=== PATIENT | female | born 1975 | race Caucasian/White ===

== ENCOUNTER 2016-07-21 12:01 | Emergency (ER) | payer OTHER ==
[2016-07-21 12:21] VITALS: O2SAT 99
[2016-07-21] MEDS ORDERED: TORAdol 30 mg Injection IM ONE (12:28)
[2016-07-21] MEDS ORDERED: TORAdol 30 mg Injection ONE (12:33)
--- NOTE | 2016-07-21 12:34 | ERPHSYRPT ---
- History of Present Illness Time Seen by Provider: 07/21/16 12:05 Source: patient Patient Subjective Stated Complaint: Pt states she has a tooth abscess on the right upper gum line. It started in the beginning of June - Dr. Oakes thought it was a sinus infection and started her on amoxicillin. She went to [facility] on July 10 and was diagnosed with the abscess and started on norco, cephalexin, and metronidazole. She states it is just getting worse and starting to hurt higher in the face/head. She states she has an appointment with the dentist on Thursday but that she can't pull the teeth because the infection is so bad. Pt also states she has been vomiting because the pain is so bad. Triage Nursing Assessment: Pt alert and oriented x3. skin pink warm and dry. afebrile. abscess noted to right upper gumline. right side of face appears to be slightly swollen Physician History: CC: toothache Hx: 40 y/o patient of Dr Oakes and Dr Stokes. She has toothache and abscess. Has seen dentist, and [facility] ER. Currently on keflex and flagyl. Was on amoxil. She takes percocet regularly. She has increased pain so came to ER. No fever or chills. No diff breathing. Not as she had hysterectomy. She has dental appt set up for Thursday this week. ENT Location: dental Allergies/Adverse Reactions: No Known Drug Allergies Allergy (Verified 07/21/16 12:13) Home Medications: Alprazolam 1 mg [Xanax 1 mg] 1 mg PO TID PRN 04/22/14 [History] Furosemide [Lasix] 40 mg PO BID 10/11/14 [History] Oxycodone HCl/Acetaminophen [Percocet 10-325 mg Tablet] 1 ea PO QID 06/11/15 [ History] Atorvastatin Calcium 40 mg PO DAILY 02/27/16 [History] Gabapentin 400 mg [Neurontin 400 MG] 400 mg PO TID 02/27/16 [History] Cephalexin Mh 500 mg [Keflex 500 mg] 500 mg PO QID 07/21/16 [History] Metronidazole 500 mg [Flagyl 500 MG] 500 mg PO DAILY 07/21/16 [History] Naproxen 375 mg [Naprosyn 375 mg] 375 mg PO BID 07/21/16 [History] Omeprazole 20 MG [Prilosec 20 mg] 20 mg PO DAILY 07/21/16 [History] Hx Tetanus, Diphtheria Vaccination/Date Given: No Hx Influenza Vaccination/Date Given: Yes Hx Pneumococcal Vaccination/Date Given: No - Review of Systems Constitutional: No Fever, No Chills Eyes: No Symptoms Ears, Nose, & Throat: Mouth Pain Respiratory: No Dyspnea Abdominal/Gastrointestinal: No Vomiting - Past Medical History Pertinent Past Medical History: Yes Neurological History: Other ENT History: No Pertinent History Cardiac History: Arrhythmia, High Cholesterol Respiratory History: No Pertinent History Endocrine Medical History: Other Musculoskeletal History: Arthritis, Fractures, Other GI Medical History: GERD History: Other Psycho-Social History: Anxiety, Depression Female Reproductive Disorders: Endometriosis Other Medical History: 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 she states it is deterioration of her muscles and bones.,goiter removed, carpal tunnel, - Past Surgical History Past Surgical History: Yes Neuro Surgical History: No Pertinent History Cardiac: No Pertinent History Respiratory: No Pertinent History Gastrointestinal: Cholecystectomy, Exploratory Laparoscopy Genitourinary: No Pertinent History Musculoskeletal: Joint Replacement Female Surgical History: Hysterectomy Other Surgical History: pt has had multiple surgeries.... 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 - Social History Smoking Status: Former smoker How long have you smoked: 10 years Exposure to second hand smoke: No Drug Use: marijuana Patient Lives Alone: No - Female History Hx Last Menstrual Period: hyster Hx Now: No - Nursing Vital Signs Nursing Vital Signs: Initial Vital Signs Temperature 98.0 F Temperature Source Oral Pulse Rate 60 Respiratory Rate 18 Blood Pressure [Right Arm] 142/74 Pain Intensity 9 - Physical Exam General Appearance: alert, obese, other (talkative) Eye Exam: bilateral eye: PERRL, EOMI Throat Exam: pharynx normal Neck Exam: normal inspection, non-tender, supple Cardiovascular/Respiratory Exam: normal breath sounds, regular rate/rhythm Neurologic Exam: alert, oriented x 3, cooperative Skin Exam: warm, dry, other (no facial cellulitis), No rash SpO2 Interpretation: normal SpO2: 99 Oxygen Delivery: Room Air Comments: Right upper tooth tender with some surrounding swelling. No trismus. No facial cellulitis. - Course Nursing assessment & vital signs reviewed: Yes - Progress Progress Note: 07/21/16 12:32 Advised she needs to see dentist again as soon as possible. She will try cleocin change. Toradol given here. Counseled pt/family regarding: diagnosis, need for follow-up - Departure Time of Disposition: 12:32 Departure Disposition: Home Clinical Impression: odontogenic abscess Condition: Stable Critical Care Time: No Referrals: VANE OAKES [Primary Care Provider] - Instructions: Dental Pain, Tooth Abscess Additional Instructions: See dentist as soon as possible. Stop keflex and flagyl. Rx clecoin. Rx florastor or get a probiotic. Continue your pain medication as already prescribed. Prescriptions: Clindamycin HCl 1 cap PO QID #28 capsule Saccharomyces Boulardii [Florastor] 250 mg PO BID #20 capsule
[2016-07-21 13:18] VITALS: BP 112/72; PULSE 56
== END 2016-07-21 13:17 | disposition home or self-care (01) ==
LOC: ED 12:01
DX: K04.7 Periapical abscess without sinus (principal)
CPT/HCPCS: 96372; 99284; J1885

== ENCOUNTER 2019-01-04 05:51 | Day surgery (SDC) | payer OTHER ==
[2019-01-04] MEDS ORDERED: Lactated Ringers 1,000 ML IV SCH (06:30)
[2019-01-04 06:44] VITALS: O2SAT 99
[2019-01-04] MEDS ORDERED: DIPRIVAN 200 MG/20 ML IV ONE (07:14)
[2019-01-04] MEDS ORDERED: Ketamine HCl 50 MG/ML ONE (07:14)
[2019-01-04] MEDS ORDERED: ROBINUL ONE (07:30)
[2019-01-04 10:32] VITALS: BP 133/72; PULSE 50
--- NOTE | 2019-01-04 11:04 | OP ---
SURGERY DATE/TIME: 01/04/201930 PREOPERATIVE DIAGNOSIS: Epigastric pain. POSTOPERATIVE DIAGNOSIS: Moderate gastritis. PROCEDURE: Esophagogastroduodenoscopy with biopsy. SURGEON: Dr. Oakes. ANESTHESIA: Medications given by the anesthesia department. BRIEF HISTORY: The patient is a 43 year old white female presenting now with persistent epigastric pain despite proton pump inhibitor medication. The patient is felt the need to have endoscopic evaluation. She was described the risks of the procedure including the risk of perforation, phlebitis, untoward reaction to medication, bleeding and missed lesions. The patient verbalized her understanding and desired to have the procedure performed. DESCRIPTION OF PROCEDURE: The patient was given the medications by the anesthesia department. She had continuous pulse oximetry, ECG monitoring, intermittent blood pressure monitoring and tidal CO2 monitoring during the examination. She was placed in the left lateral decubitus position. A bite block was placed and the flexible Olympus gastroscope was used to intubate the oropharynx. A view of the larynx was obtained and was normal. The scope was easily introduced in the esophagus which was normal throughout its length. The stomach was entered where normal gastric rugal folds were seen. The scope was passed along the greater curvature of the stomach to the antrum where there appeared to be moderate erythema but no erosions or ulcerations were encountered. The scope was advanced to the pylorus which was then intubated. The duodenum inspected and found to be normal. The scope is withdrawn towards the stomach. Again, a retroflex view was obtained of the lesser curvature, fundus and cardia regions of the stomach and these appeared to be essentially normal. The scope was then redirected towards the gastric antrum and biopsies were obtained to rule out the presence of Helicobacter pylori-type organisms. The scope was then removed from the patient who tolerated the procedure well and was sent back to outpatient recovery in good condition.
== END 2019-01-04 09:10 | disposition home or self-care (01) ==
LOC: SDC 05:51
PROVIDERS: ATTEND Family Medicine
DX: K29.70 Gastritis, unspecified, without bleeding (principal)
CPT/HCPCS: J2704

== ENCOUNTER 2022-01-01 10:03 | Emergency (ER) | payer OTHER ==
[2022-01-01 10:18] VITALS: BP 156/112; PULSE 60; O2SAT 98
[2022-01-01] MEDS ORDERED: TORAdol 30 mg Injection ONE (10:38)
[2022-01-01] MEDS ORDERED: Norflex 60 MG/2 ML ONE (10:38)
[2022-01-01] MEDS: Norflex 60 MG/2 ML IM ONE (10:39)
[2022-01-01] MEDS: TORAdol 30 mg Injection IM ONE (10:39)
--- NOTE | 2022-01-01 10:53 | ERPHSYRPT ---
- History of Present Illness Source: patient Exam Limitations: no limitations Patient Subjective Stated Complaint: PT states "I have CMT disease and I have flair ups and this is the worst it has ever been and I just want the pain to go away." Triage Nursing Assessment: PT presented alert and oriented X3, skin wpd. PT unable to sit still, moaning and crying. pt visibly upset Physician History: 46 yo wf w [facility] Dz presents w cc of myalgias/arthralias x 2 days. Pt has chronic pain and intermittent flare up. She takes Gabapentin/Xanax/Tramadol on a regular basis. Pain "greater than 10" on scale. She denies N/V/D/cough/coryza/fever/dysuria/hematuria/abdominal pain. Everything makes the pain worse. Timing/Duration: other (2-3 days) Severity: moderate Modifying Factors: Improves With: other (Everything makes it worse) Associated Symptoms: No nausea, No vomiting, No abdominal pain, No shortness of breath, No heartburn, No diaphoresis, No cough, No chills, No chest pain, No fever, No headaches, No loss of appetite, No malaise, No rash, No syncope, No seizure Allergies/Adverse Reactions: No Known Drug Allergies Allergy (Verified 12/31/18 12:30) Home Medications: ALPRAZolam 1 MG [Xanax 1 mg] 1 mg PO TID PRN PRN 12/31/18 [History] Ergocalciferol (Vitamin D2) [Vitamin D] 50,000 unit PO WEEKLY 12/31/18 [History] Gabapentin [Gralise] 1,800 mg PO DAILY 12/31/18 [History] Omeprazole Magnesium [Prilosec Otc] 40 mg PO BID 12/31/18 [History] Ondansetron ODT 4 MG [Zofran Odt 4 mg] 4 mg PO Q6H PRN PRN 12/31/18 [History] Potassium Chloride 20 meq PO DAILY 12/31/18 [History] Celecoxib 200 mg PO BID 01/01/22 [History] Doxycycline Monohydrate 100 mg PO BID 01/01/22 [History] Tramadol HCl 50 mg [Ultram 50 mg] 50 mg PO QID 01/01/22 [History] Hx Tetanus, Diphtheria Vaccination/Date Given: No Hx Influenza Vaccination/Date Given: Yes Hx Pneumococcal Vaccination/Date Given: No Immunizations Up to Date: Yes Travel Risk - International Travel Have you traveled outside of the country in past 3 weeks: No - Coronavirus Screening Are you exhibiting any of the following symptoms?: No Close contact with a COVID-19 positive Pt in past 14-21 Days: No - Vaccine Status Have you recieved a Covid-19 vaccination: No - Review of Systems Constitutional: No Symptoms Eyes: No Symptoms Ears, Nose, & Throat: No Symptoms Respiratory: No Symptoms Cardiac: No Symptoms Abdominal/Gastrointestinal: No Symptoms Genitourinary Symptoms: No Symptoms Skin: No Symptoms Neurological: No Symptoms Psychological: No Symptoms Endocrine: No Symptoms Hematologic/Lymphatic: No Symptoms Immunological/Allergic: No Symptoms - Past Medical History Pertinent Past Medical History: Yes Neurological History: Peripheral Neuropathy ENT History: No Pertinent History Cardiac History: No Pertinent History Respiratory History: No Pertinent History Endocrine Medical History: Other Musculoskeletal History: Arthritis, Fractures, Osteoarthritis GI Medical History: GERD History: Other Psycho-Social History: Anxiety, Depression Female Reproductive Disorders: Endometriosis Other Medical History: Hx of goiter. 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 - Social History Smoking Status: Never smoker How long have you smoked: 30 years Exposure to second hand smoke: Yes Drug Use: marijuana Patient Lives Alone: No - Female History Hx Last Menstrual Period: hysterectomy Hx Now: No - Nursing Vital Signs Nursing Vital Signs: Initial Vital Signs Temperature 97.2 F 01/01/22 10:09 Pulse Rate 60 01/01/22 10:09 Respiratory Rate 20 01/01/22 10:09 Blood Pressure 156/112 01/01/22 10:09 O2 Sat by Pulse Oximetry 98 01/01/22 10:09 Pain Scale Pain Intensity [Posterior Back 8 ] Pain Intensity 8 Hypertension - Physical Exam General Appearance: no apparent distress, anxiety Eye Exam: PERRL/EOMI, eyes nml inspection Ears, Nose, Throat Exam: normal ENT inspection, TMs normal, pharynx normal, moist mucous membranes Neck Exam: normal inspection, non-tender, supple, full range of motion, No meningismus, No mass, No Brudzinski, No Kernig's Respiratory Exam: normal breath sounds, lungs clear, airway intact Cardiovascular Exam: regular rate/rhythm, normal heart sounds, normal peripheral pulses, capillary refill <2 sec, No murmur Gastrointestinal/Abdomen Exam: soft, normal bowel sounds, No tenderness Back Exam: normal inspection, normal range of motion, No CVA tenderness, No vertebral tenderness Extremity Exam: normal inspection, normal range of motion, pelvis stable Neurologic Exam: alert, oriented x 3, cooperative, shake maker II-XII nml as tested, normal mood/affect, nml cerebellar function, nml station & gait, sensation nml, No motor deficits, No sensory deficit Skin Exam: normal color, warm, dry Lymphatic Exam: adenopathy SpO2 Interpretation: normal SpO2: 98 O2 Delivery: Room Air - Course Nursing assessment & vital signs reviewed: Yes Ordered Tests: Medication Summary Discontinued Medications Generic Name Dose Route Start Last Admin Trade Name Freq PRN Reason Stop Dose Admin Droperidol 1.25 mg 01/01/22 10:35 01/01/22 10:39 Droperidol 5 Mg/2 Ml Vial IM 01/01/22 10:36 1.25 mg STAT ONE Administration Droperidol Confirm 01/01/22 10:38 Droperidol 5 Mg/2 Ml Vial Administered 01/01/22 10:39 Dose 5 mg .ROUTE .STK-MED ONE Ketorolac Tromethamine 30 mg 01/01/22 10:34 01/01/22 10:39 Ketorolac Tromethamine 30 Mg/Ml Inj IM 01/01/22 10:35 30 mg STAT ONE Administration Ketorolac Tromethamine Confirm 01/01/22 10:38 Ketorolac Tromethamine 30 Mg/Ml Inj Administered 01/01/22 10:39 Dose 30 mg .ROUTE .STK-MED ONE Orphenadrine Citrate 60 mg 01/01/22 10:34 01/01/22 10:39 Orphenadrine Citrate 60 Mg/2 Ml Vial IM 01/01/22 10:35 60 mg STAT ONE Administration Orphenadrine Citrate Confirm 01/01/22 10:38 Orphenadrine Citrate 60 Mg/2 Ml Vial Administered 01/01/22 10:39 Dose 60 mg .ROUTE .STK-MED ONE - Progress Progress Note: 01/01/22 10:57 30mg IM Toradol 60mg IM Norflex 01/01/22 10:59 1.25mg IM Droperidol 01/01/22 11:23 Pt's symptoms much improved Counseled pt/family regarding: diagnosis, need for follow-up - Departure Departure Disposition: Home Clinical Impression: Chronic pain Condition: Stable Critical Care Time: No Referrals: VANE OAKES [Primary Care Provider] - Follow up/PCP as directed Instructions: Chronic Pain (DC) Additional Instructions: Follow up with Dr. Oakes Return to ER for increasing pain or temperature greater than 100.5
== END 2022-01-01 11:36 | disposition home or self-care (01) ==
LOC: ED 10:03
DX: G89.29 Other chronic pain (principal); G60.0 Hereditary motor and sensory neuropathy; Z79.899 Other long term (current) drug therapy
CPT/HCPCS: 96372; 99283; J1885; J2360

== ENCOUNTER 2022-06-18 14:07 | Day surgery (SDC) | payer OTHER ==
[2012-03-16 17:16] VITALS: BP 114/68
[2022-06-18] MEDS ORDERED: Decadron 4 MG INJ IV ONE (14:08)
[2022-06-18] MEDS ORDERED: LIDOCAINE HCL 1% 50 MG/5 ML VL PF IJ ONE (14:08)
[2022-06-18] MEDS ORDERED: DIPRIVAN 200 MG/20 ML IV ONE (16:22)
[2022-06-18] MEDS ORDERED: Lactated Ringers 1,000 ML IV ONE (16:44)
--- NOTE | 2022-06-18 18:55 | XRAY ---
Indication: Bilateral piriformis injection. Intraoperative fluoroscopy provided for 19 seconds. 2 digital spot image submitted for interpretation demonstrates posterior needle tip projecting over the expected left and right piriformis muscles. Small amount of contrast injected for both needle tip placement. Correlate with intraoperative findings/report.
--- NOTE | 2022-06-19 09:56 | XRAY ---
19 seconds of fluoroscopy was used in surgery for bilateral piriformis injections.
== END 2022-06-18 16:50 | disposition home or self-care (01) ==
LOC: SDC-PAIN 14:07
PROVIDERS: ATTEND Psychiatry & Neurology Pain Medicine
DX: M79.18 Myalgia, other site (principal); Z79.899 Other long term (current) drug therapy
CPT/HCPCS: 20552; 72170; 77002; J1100; J2001; J2704; Q9966

== ENCOUNTER 2022-09-03 14:23 | Day surgery (SDC) | payer OTHER ==
[2012-03-16 17:16] VITALS: BP 114/68
[2022-09-03] MEDS ORDERED: LIDOCAINE HCL 1% 50 MG/5 ML VL PF IJ ONE (14:24)
[2022-09-03] MEDS ORDERED: Decadron 4 MG INJ IV ONE (14:24)
[2022-09-03] MEDS ORDERED: DIPRIVAN 200 MG/20 ML IV ONE ×2 (17:00→17:06)
[2022-09-03] MEDS ORDERED: Lactated Ringers 1,000 ML IV ONE (17:29)
--- NOTE | 2022-09-03 20:57 | XRAY ---
Indication: Right piriformis injection. Intraoperative fluoroscopy provided for 11 seconds. Single digital spot images submitted for interpretation demonstrates posterior needle tip projecting over the expected right piriformis muscle. Small amount of contrast injected for needle tip placement. Correlate with intraoperative findings/report.
--- NOTE | 2022-09-04 09:04 | XRAY ---
11 seconds of fluoroscopy was used in surgery for a right piriformis injection.
== END 2022-09-03 17:25 | disposition home or self-care (01) ==
LOC: SDC-PAIN 14:23
PROVIDERS: ATTEND Psychiatry & Neurology Pain Medicine
DX: M79.18 Myalgia, other site (principal); Z79.899 Other long term (current) drug therapy
CPT/HCPCS: 20552; 72170; 77002; J1100; J2001; J2704; Q9966

== ENCOUNTER 2023-02-10 11:23 | Emergency (ER) | payer OTHER ==
[2023-02-10 11:41] VITALS: RESP 18; TEMP 97.2
[2023-02-10] MEDS ORDERED: TORAdol 30 mg Injection IM ONE (11:48)
[2023-02-10] MEDS ORDERED: DECADRON 10MG INJ. IM ONE (11:48)
[2023-02-10] MEDS ORDERED: TORAdol 30 mg Injection ONE (11:59)
[2023-02-10] MEDS ORDERED: DECADRON 10MG INJ. ONE (11:59)
[2023-02-10 13:26] VITALS: O2SAT 98
[2023-02-10 14:08] LABS: HCG URINE TEST NEGATIVE (NEGATIVE)
[2023-02-10 14:10] LABS: Appearance Clear (Clear); Bacteria None Seen /HPF (None Seen); Bilirubin Negative (Negative); Blood Negative (Negative); Epithelial Cells None Seen /HPF (None Seen); Glucose, Urine Negative (Negative); Hyaline Casts NONE SEEN /LPF (0-2); Ketones Negative (Negative); Leukocyte Esterase Negative (Negative); Nitrite Negative (Negative); Ph 6.5 (4.6-8.0); Protein,Urine Dip Negative (Negative); RBC 0-2 /HPF (0-5); WBC 0-2 /HPF (0-5)
[2023-02-10 14:17] LABS: ADD URINE CULTURE? NO (NO)
--- NOTE | 2023-02-10 14:18 | XRAY ---
CLINICAL HISTORY:pain COMPARISON:None TECHNIQUE:CT scan of the lumbar spine was performed without contrast. FINDINGS: No fracture noted. Mild scoliotic deformity with convexity towards the right side. Normal mid-sagittal diameter of the examined lumbar vertebrae. Multilevel osteophytes are noted with relatively reduced intervertebral disc spaces between T11-T12, T12-L1, and L1-L2. Subchondral cystic changes and sclerosis were noted zygo apophyseal joints at multiple levels. There is an avulsed bony fragment noted at the spinous process of L5, No abnormal para-vertebral soft tissue shadow. [id number] analysis: T12-L1: Disc bulge is noted with mild central canal and neural foraminal stenosis. L1-L2: A mild diffuse disc bulge is noted with mild neural foraminal stenosis bilaterally. L2-L3: No central canal or neuroforaminal stenosis. L3-L4: Mild diffuse disc bulge causing mild central canal and neural foraminal stenosis. L4-L5: Left foraminal disc bulge causing left neural foraminal stenosis. L5-S1: Extensive degenerative changes in bilateral facet joints with subarticular cyst formation and right pars defect with subchondral stenosis. Diffuse disc bulge is also noted causing bilateral neural foraminal stenosis. IMPRESSION: 1. Mild scoliotic deformity with convexity towards the right side and extensive degenerative changes in the lumbar spine with multilevel osteophyte formation and facet joint arthropathy. 2. Right-sided pars defect with sclerotic margins at L5-S1 and extensive arthropathic changes around. 3. Multilevel disc bulges requiring further evaluation with an MRI lumbar spine for better evaluation. Electronically Signed by: Gabi Brody MD. (02/10/2023 14:14:16 EST)
--- NOTE | 2023-02-10 14:48 | ERPHSYRPT ---
- History of Present Illness Time Seen by Provider: 02/10/23 12:00 Source: patient Exam Limitations: no limitations Patient Subjective Stated Complaint: PT HERE FOR PAIN TO LOWER BACK, SHE HAS CHRONIC BACK PAIN AND WAS SENT HERE FOR PAIN OFFICE. NO NEW INJURY Triage Nursing Assessment: PT ALERT, MOANING OUT, PACING BACK AND FORTH HOLDING BACK. NO EDEMA NOTED, SKIN W/D/P. MOVES ALL EXT WELL Physician History: Patient is a 47-year-old female presents to our ED as referral from pain clinic for evaluation and treatment of acute on chronic back pain. Pain clinic states that they intended to obtain an MRI however due to insurance reasons MRI has not been approved. Pain described as an ache that radiates into her right posterior leg. Pain worse with straight leg raise. Pain improves to hook lying. No change in bowel bladder function. No recent back procedure. No fever. No lower extremity numbness tingling or weakness. No saddle anesthesia. Patient states the pain is similar to her chronic pain. Significant other at bedside. They voiced no other complaints or concerns at this time. Portions of this note were created with voice recognition technology. There may be grammatical, spelling, punctuation or sound alike errors Timing/Duration: day(s) Method of Injury: unknown Quality: burning Back Pain Location: lumbar spine Back Pain Radiation: buttocks Severity of Pain-Max: severe Severity of Pain-Current: moderate Modifying Factors: Improves With: movement Associated Symptoms: denies symptoms Previous symptoms: same symptoms as today Allergies/Adverse Reactions: oxycodone Allergy (Verified 02/10/23 11:43) Home Medications: ALPRAZolam 1 MG [Xanax 1 mg] 1 mg PO TID PRN PRN 12/31/18 [History] Ergocalciferol (Vitamin D2) [Vitamin D] 50,000 unit PO WEEKLY 12/31/18 [History] Gabapentin [Gralise] 1,800 mg PO DAILY 12/31/18 [History] Omeprazole Magnesium [Prilosec Otc] 40 mg PO BID 12/31/18 [History] Potassium Chloride 20 meq PO DAILY 12/31/18 [History] Celecoxib 200 mg PO BID 01/01/22 [History] Tramadol HCl 50 mg [Ultram 50 mg] 50 mg PO QID 01/01/22 [History] Hx Tetanus, Diphtheria Vaccination/Date Given: No Hx Influenza Vaccination/Date Given: Yes Hx Pneumococcal Vaccination/Date Given: No Immunizations Up to Date: Yes Travel Risk - International Travel Have you traveled outside of the country in past 3 weeks: No - Coronavirus Screening Are you exhibiting any of the following symptoms?: No Close contact with a COVID-19 positive Pt in past 14-21 Days: No - Vaccine Status Have you recieved a Covid-19 vaccination: No - Review of Systems Constitutional: No Symptoms, No Fever, No Chills Eyes: No Symptoms Ears, Nose, & Throat: No Symptoms Respiratory: No Symptoms, No Cough, No Dyspnea Cardiac: No Symptoms, No Chest Pain, No Edema, No Syncope Abdominal/Gastrointestinal: No Symptoms, No Abdominal Pain, No Nausea, No Vomiting, No Diarrhea Genitourinary Symptoms: No Symptoms, No Dysuria Musculoskeletal: No Symptoms, No Back Pain, No Neck Pain Skin: No Symptoms, No Rash Neurological: No Symptoms, No Dizziness, No Focal Weakness, No Sensory Changes Psychological: No Symptoms Endocrine: No Symptoms Hematologic/Lymphatic: No Symptoms Immunological/Allergic: No Symptoms All Other Systems: Reviewed and Negative - Past Medical History Pertinent Past Medical History: Yes Neurological History: Other ENT History: No Pertinent History Cardiac History: No Pertinent History Respiratory History: Bronchitis Endocrine Medical History: Hypothyroidism Musculoskeletal History: Degenerative Disk Disease, Osteoarthritis, Other GI Medical History: GERD History: Other Psycho-Social History: Anxiety, Depression Female Reproductive Disorders: Endometriosis Other Medical History: REPORTS HX GOITER, HYSTERECTOMY 2010, GERD. CHRONIC PAIN SEE PAIN. R RTC REPAIR - Past Surgical History Past Surgical History: Yes Neuro Surgical History: No Pertinent History Cardiac: No Pertinent History Respiratory: No Pertinent History Gastrointestinal: Cholecystectomy, Exploratory Laparoscopy Genitourinary: No Pertinent History Musculoskeletal: Joint Replacement Female Surgical History: Hysterectomy Other Surgical History: pt has had multiple surgeries.... 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 - Social History Smoking Status: Never smoker How long have you smoked: 30 years Exposure to second hand smoke: Yes Drug Use: marijuana Patient Lives Alone: No - Female History Hx Last Menstrual Period: HYSTER Hx Now: No - Nursing Vital Signs Nursing Vital Signs: Initial Vital Signs Temperature 97.2 F 02/10/23 11:40 Pulse Rate 94 H 02/10/23 11:40 Respiratory Rate 18 02/10/23 11:40 Blood Pressure 139/101 02/10/23 11:40 O2 Sat by Pulse Oximetry 99 02/10/23 11:40 Pain Scale Pain Intensity [Back] 10 Pain Intensity 0 - Physical Exam General Appearance: no apparent distress, alert Eye Exam: PERRL/EOMI, eyes nml inspection Neck Exam: normal inspection, non-tender, supple, full range of motion, No meningismus, No midline tenderness Respiratory Exam: normal breath sounds, lungs clear, No respiratory distress Cardiovascular Exam: regular rate/rhythm, normal heart sounds Gastrointestinal Exam: soft, No tenderness, No mass Back Exam: other (Some tenderness to lumbar spine paraspinal musculature. Mild to moderate midline tenderness as well.) Extremity Exam: normal inspection, normal range of motion, No calf tenderness, No pedal edema Peripheral Pulses: dorsalis-pedis (R): 2+, dorsalis-pedis (L): 2+ Neurologic Exam: alert, oriented x 3, cooperative, night stocker II-XII nml as tested, normal mood/affect, nml station & gait, sensation nml, No motor deficits Skin Exam: normal color, warm, dry, No rash Lymphatic Exam: No adenopathy SpO2 Interpretation: normal SpO2: 98 O2 Delivery: Room Air - Course Nursing assessment & vital signs reviewed: Yes - CT Exams Lumbar Spine CT Interpretation: Tele-radiologist Report (Disc bulge, sciatica, neuroforaminal narrowing) Ordered Tests: Active Orders 24 hr Category Date Time Status LUMBAR SPINE W/O [CT] Stat Exams 02/10/23 11:43 Completed HCG QUALITATIVE, URINE Stat Lab 02/10/23 14:06 Completed UA W/RFX UR CULTURE Stat Lab 02/10/23 14:03 Completed Medication Summary Discontinued Medications Generic Name Dose Route Start Last Admin Trade Name Freq PRN Reason Stop Dose Admin Dexamethasone Sodium Phosphate 10 mg 02/10/23 11:48 02/10/23 12:04 Dexamethasone Sod Phosphate 10 Mg/Ml IM 02/10/23 11:49 10 mg STAT ONE Administration Dexamethasone Sodium Phosphate Confirm 02/10/23 11:59 Dexamethasone Sod Phosphate 10 Mg/Ml Administered 02/10/23 12:00 Dose 10 mg .ROUTE .STK-MED ONE Ketorolac Tromethamine 60 mg 02/10/23 11:48 02/10/23 12:03 Ketorolac Tromethamine 30 Mg/Ml Inj IM 02/10/23 11:49 60 mg STAT ONE Administration Ketorolac Tromethamine Confirm 02/10/23 11:59 Ketorolac Tromethamine 30 Mg/Ml Inj Administered 02/10/23 12:00 Dose 60 mg .ROUTE .STK-MED ONE Lab/Rad Data: Laboratory Results 02/10/23 02/10/23 Range/Units 14:06 14:03 Urine Color Yellow (Yellow) Urine Appearance Clear (Clear) Urine pH 6.5 (4.6-8.0) Ur Specific [place] 1.020 (1.005-1.030) Urine Protein Negative (Negative) Urine Glucose (UA) Negative (Negative) mg/dL Urine Ketones Negative (Negative) Urine Blood Negative (Negative) Urine Nitrite Negative (Negative) Urine Bilirubin Negative (Negative) Urine Urobilinogen 1.0 A (0.2) mg/dL Ur Leukocyte Esterase Negative (Negative) U Hyaline Cast (Auto) NONE SEEN (0-2) /LPF Urine Microscopic RBC 0-2 (0-5) /HPF Urine Microscopic WBC 0-2 (0-5) /HPF Ur Epithelial Cells None Seen (None Seen) /HPF Urine Bacteria None Seen (None Seen) /HPF Urine Culture Reflexed NO (NO) Urine HCG, Qual NEGATIVE (NEGATIVE) - Progress Progress: improved Progress Note: Patient is a 47-year-old female presents to our ED for evaluation and treatment of acute on chronic low back pain/sciatica. Physical exam reveals some tenderness along the bilateral lumbar paraspinal musculature and midline lumbar area particularly at L5-S1. Overlying soft tissue intact. Patient received Decadron and Toradol for pain control. Patient reassessed. Pain significantly improved. CT lumbar spine reveals disc bulge neuroforaminal narrowing. Patient is currently scheduled for an outpatient MRI. Patient will also be following up with neurosurgery/orthopedic spine surgery for consultation. Urinalysis negative for UTI. Patient states he is ready for discharge. No indication for further workup at this time. Portions of this note were created with voice recognition technology. There may be grammatical, spelling, punctuation or sound alike errors Complexity problem addressed is moderate acute complicated No critical care time Complexity of data reviewed and analyzed is moderate. Test ordered test reviewed. Results analyzed and correlated clinically with history and physical examination. Risk complication and or risk of morbidity/mortality of patient management is low. Vital stable. Time spent in discharge patient approximately 10 minutes. Plan of care established via shared decision making. No social determinants of health present impede follow-up. Portions of this note were created with voice recognition technology. There may be grammatical, spelling, punctuation or sound alike errors 02/10/23 15:04 Counseled pt/family regarding: diagnosis, need for follow-up, rad results - Departure Departure Disposition: Home Clinical Impression: Sciatica, Bulging discs, Neuroforaminal stenosis of lumbar spine, Back pain Condition: Stable Critical Care Time: No Referrals: VANE MOTA [Primary Care Provider] - Follow up/PCP as directed Additional Instructions: Discharge/Care Plan JAKUB VIDAL was seen on 02/10/23 in the Emergency Room. The patient was counseled regarding Diagnosis,Lab results, Imaging studies, need for follow up and when to return to the Emergency Room. Prescriptions given: Discharge Note I have spoken with the patient and/or caregivers. I have explained the patient's condition, diagnosis and treatment plan based on the information available to me at this time. I have answered the patient's and/or caregiver's questions and addressed any concerns. The patient and/or caregivers have as good understanding of the patient's diagnosis, condition and treatment plan as can be expected at this point. The vital signs have been stable. The patient's condition is stable and appropriate for discharge from the emergency department. The patient will pursue further outpatient evaluation with the primary care physician or other designated or consulting physician as outlined in the discharge instructions. The patient and/or caregivers are agreeable to this plan of care and follow-up instructions have been explained in detail. The patient and/or caregivers have received these instruction. The patient/and or caregivers are aware that any significant change in condition or worsening of symptoms should prompt an immediate return to this or the closest emergency department or call 911.
[2023-02-10 15:04] VITALS: BP 128/75; PULSE 88
== END 2023-02-10 15:02 | disposition home or self-care (01) ==
LOC: ED 11:23
DX: M54.31 Sciatica, right side (principal); M51.36 Other intervertebral disc degeneration, lumbar region; M48.061 Spinal stenosis, lumbar region without neurogenic claudication; M54.50 Low back pain, unspecified; Z79.891 Long term (current) use of opiate analgesic; Z79.899 Other long term (current) drug therapy; Z28.310 Unvaccinated for COVID-19
CPT/HCPCS: 72131; 81001; 81025; 96372; 99283; J1100; J1885

== ENCOUNTER 2023-03-05 07:19 | Emergency (ER) | payer OTHER ==
[2023-03-05 07:33] VITALS: TEMP 97.3
--- NOTE | 2023-03-05 07:41 | ERPHSYRPT ---
- History of Present Illness Time Seen by Provider: 03/05/23 07:35 Source: patient Exam Limitations: clinical condition Patient Subjective Stated Complaint: back pain Triage Nursing Assessment: patient reports known cyst on lumbar spine and in severe pain. patient is tearful. reports dr jonas diagnosed cyst. pt reports dr jonas is no longer treating her pain due to referring her to a specialist in [place]. Physician History: This is a 47-year-old white female patient who presents with low back pain that is severe per her report. Patient has been having back pain issues for the last 2 to 3 months. Per her report, they found a lumbar spine cyst and she was referred to a back specialist and [facility]. Patient was being followed by pain specialist Dr. Jonas. He is no longer in control of her pain management. Patient denies any acute fall or trauma to the painful area. Patient has not had symptoms of urinary or bowel incontinence. She does not have numbness down to her feet. Review of the patient's lumbar MRI dated 02/11/2023 showed multiple level lumbar spine disc bulges with neuroforaminal narrowing. There is evidence of L3-4, L4-5, L5-S1 parafacetal cysts. Patient was driven into the hospital by her . Timing/Duration: yesterday, worse Method of Injury: other (No acute fall or trauma) Quality: sharp, stabbing Back Pain Location: lumbar spine Severity of Pain-Max: moderate Severity of Pain-Current: moderate Associated Symptoms: lower back pain, muscle spasms, No urinary incontinence, No loss of bowel control, No problems urinating, No numbness in legs/feet, No tingling in legs/feet Previous symptoms: same symptoms as today, no recent treatment Allergies/Adverse Reactions: oxycodone Allergy (Verified 03/05/23 07:35) itching Home Medications: ALPRAZolam 1 MG [Xanax 1 mg] 1 mg PO TID PRN PRN 12/31/18 [History] Ergocalciferol (Vitamin D2) [Vitamin D] 50,000 unit PO WEEKLY 12/31/18 [History] Gabapentin [Gralise] 1,800 mg PO DAILY 12/31/18 [History] Omeprazole Magnesium [Prilosec Otc] 40 mg PO BID 12/31/18 [History] Potassium Chloride 20 meq PO DAILY 12/31/18 [History] Celecoxib 200 mg PO BID 01/01/22 [History] Tramadol HCl 50 mg [Ultram 50 mg] 50 mg PO QID 01/01/22 [History] Hx Tetanus, Diphtheria Vaccination/Date Given: No Hx Influenza Vaccination/Date Given: Yes Hx Pneumococcal Vaccination/Date Given: No Travel Risk - International Travel Have you traveled outside of the country in past 3 weeks: No - Coronavirus Screening Are you exhibiting any of the following symptoms?: No Close contact with a COVID-19 positive Pt in past 14-21 Days: No - Vaccine Status Have you recieved a Covid-19 vaccination: No - Review of Systems Constitutional: No Symptoms Eyes: No Symptoms Ears, Nose, & Throat: No Symptoms Respiratory: No Symptoms Cardiac: No Symptoms Abdominal/Gastrointestinal: No Symptoms Genitourinary Symptoms: No Symptoms Musculoskeletal: Back Pain Skin: No Symptoms Neurological: No Symptoms Psychological: No Symptoms Endocrine: No Symptoms Hematologic/Lymphatic: No Symptoms Immunological/Allergic: No Symptoms All Other Systems: Reviewed and Negative - Past Medical History Pertinent Past Medical History: Yes Neurological History: Other ENT History: No Pertinent History Cardiac History: No Pertinent History Respiratory History: Bronchitis Endocrine Medical History: Hypothyroidism Musculoskeletal History: Degenerative Disk Disease, Osteoarthritis, Other GI Medical History: GERD History: Other Psycho-Social History: Anxiety, Depression Female Reproductive Disorders: Endometriosis Other Medical History: REPORTS HX GOITER, HYSTERECTOMY 2009, GERD. CHRONIC PAIN SEE PAIN. R RTC REPAIR - Past Surgical History Past Surgical History: Yes Neuro Surgical History: No Pertinent History Cardiac: No Pertinent History Respiratory: No Pertinent History Gastrointestinal: Cholecystectomy, Exploratory Laparoscopy Genitourinary: No Pertinent History Musculoskeletal: Joint Replacement Female Surgical History: Hysterectomy Other Surgical History: pt has had multiple surgeries.... 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 - Social History Smoking Status: Never smoker How long have you smoked: 30 years Exposure to second hand smoke: No Drug Use: marijuana Patient Lives Alone: No - Female History Hx Now: No - Nursing Vital Signs Nursing Vital Signs: Initial Vital Signs Temperature 97.3 F 03/05/23 07:31 Pulse Rate 75 03/05/23 07:31 Respiratory Rate 20 03/05/23 07:31 Blood Pressure 124/91 03/05/23 07:31 O2 Sat by Pulse Oximetry 98 03/05/23 07:31 Pain Scale Pain Intensity 10 - Physical Exam General Appearance: mild distress, alert, anxiety Eye Exam: PERRL/EOMI, eyes nml inspection Ears, Nose, Throat Exam: moist mucous membranes, other (Upper edentulous) Neck Exam: normal inspection, non-tender, supple, full range of motion Respiratory Exam: normal breath sounds, lungs clear, airway intact, No chest tenderness, No respiratory distress Cardiovascular Exam: regular rate/rhythm, normal heart sounds, normal peripheral pulses Gastrointestinal Exam: soft, normal bowel sounds, No tenderness Pelvic Exam: not done Rectal Exam: not done Back Exam: normal inspection, normal range of motion, vertebral tenderness (Lumbar level), decreased range of motion, muscle spasm, No CVA tenderness Extremity Exam: normal inspection, normal range of motion, pelvis stable Neurologic Exam: alert, oriented x 3, cooperative, normal mood/affect, sensation nml, abnormal gait (Secondary to back pain) Skin Exam: normal color, warm, dry Lymphatic Exam: No adenopathy SpO2 Interpretation: normal SpO2: 98 O2 Delivery: Room Air - Course Nursing assessment & vital signs reviewed: Yes Ordered Tests: Active Orders 24 hr Category Date Time Status Clean Catch Urine Specimen STAT Care 03/05/23 07:46 Active LUMBAR SPINE W/O [CT] Stat Exams 03/05/23 07:46 Completed CBC W DIFF Stat Lab 03/05/23 08:10 Completed CMP Stat Lab 03/05/23 08:10 Completed UA W/RFX UR CULTURE Stat Lab 03/05/23 09:57 Completed Urine Triage Profile Stat Lab 03/05/23 09:57 Completed Medication Summary Generic Name Dose Route Start Last Admin Trade Name Freq PRN Reason Stop Dose Admin Sodium Chloride 1,000 mls @ 100 mls/hr 03/05/23 08:00 03/05/23 07:55 Sodium Chloride 0.9% 1000 Ml IV 04/04/23 07:59 100 mls/hr .Q10H KAUSHIK Administration Discontinued Medications Generic Name Dose Route Start Last Admin Trade Name Freq PRN Reason Stop Dose Admin Methylprednisolone Sodium 0 mg 03/05/23 07:47 03/05/23 08:05 Succinate 125 mg/ Sterile IV 03/05/23 07:48 125 mg Water 2 ml STAT ONE Administration Hydromorphone HCl 1 mg 03/05/23 07:46 03/05/23 07:58 Hydromorphone 1 Mg/1ml Inj IV 03/05/23 07:47 1 mg STAT ONE Administration Hydromorphone HCl Confirm 03/05/23 07:51 Hydromorphone 1 Mg/1ml Inj Administered 03/05/23 07:52 Dose 1 mg .ROUTE .STK-MED ONE Methylprednisolone Sodium Succinate Confirm 03/05/23 07:51 Methylprednis Sod Succ 125 Mg/2 Ml Vial Administered 03/05/23 07:52 Dose 125 mg .ROUTE .STK-MED ONE Ondansetron HCl 4 mg 03/05/23 07:46 03/05/23 07:57 Ondansetron Hcl 4 Mg/2 Ml Vial IV 03/05/23 07:47 4 mg STAT ONE Administration Ondansetron HCl Confirm 03/05/23 07:50 Ondansetron Hcl 4 Mg/2 Ml Vial Administered 03/05/23 07:51 Dose 4 mg .ROUTE .STK-MED ONE Orphenadrine Citrate 60 mg 03/05/23 07:47 03/05/23 08:02 Orphenadrine Citrate 60 Mg/2 Ml Vial IV 03/05/23 07:48 60 mg STAT ONE Administration Orphenadrine Citrate Confirm 03/05/23 07:50 Orphenadrine Citrate 60 Mg/2 Ml Vial Administered 03/05/23 07:51 Dose 60 mg .ROUTE .STK-MED ONE Sterile Water Confirm 03/05/23 08:08 Water For Injection,Sterile 10 Ml Vial Administered 03/05/23 08:09 Dose 10 ml IJ .STK-MED ONE Lab/Rad Data: Laboratory Result Diagrams 03/05/23 08:10 03/05/23 08:10 Laboratory Results 03/05/23 03/05/23 03/05/23 Range/Units 09:57 09:57 08:10 WBC (4.0-10.5) x10^3/uL RBC (4.1-5.4) x10^6/uL Hgb (12.0-16.0) g/dL Hct (35-47) % MCV (78-100) fL MCH (26-32) pg MCHC (32-36) g/dL RDW (11.5-14.0) % Plt Count (150-450) x10^3/uL MPV (7.5-11.0) fL Gran % (36.0-66.0) % Immature Gran % (Auto) (0.00-0.4) % Nucleat RBC Rel Count (0.00-0.1) % Eos # (Auto) (0-0.5) x10^3/uL Immature Gran # (Auto) (0.00-0.03) x10^3u/L Absolute Lymphs (auto) (1.0-4.6) x10^3/uL Absolute Monos (auto) (0.0-1.3) x10^3/uL Absolute Nucleated RBC (0.00-0.01) x10^3u/L Lymphocytes % (24.0-44.0) % Monocytes % (0.0-12.0) % Eosinophils % (0.00-5.0) % Basophils % (0.0-0.4) % Absolute Granulocytes (1.4-6.9) x10^3/uL Basophils # (0-0.4) x10^3/uL Sodium 138 (137-145) mmol/L Potassium 4.1 (3.5-5.1) mmol/L Chloride 106 (98-107) mmol/L Carbon Dioxide 22 (22-30) mmol/L Anion Gap 13.3 (5-15) MEQ/L BUN 10 (7-17) mg/dL Creatinine 0.65 (0.52-1.04) mg/dL Estimated GFR 108.5 ML/MIN Glucose 82 (74-106) mg/dL Calcium 9.2 (8.4-10.2) mg/dL Total Bilirubin 1.10 (0.2-1.3) mg/dL AST 23 (14-36) U/L ALT 15 (0-35) U/L Alkaline Phosphatase 52 (38-126) U/L Serum Total Protein 7.1 (6.3-8.2) g/dL Albumin 4.2 (3.5-5.0) g/dL Urine Color Yellow (Yellow) Urine Appearance Clear (Clear) Urine pH 6.0 (4.6-8.0) Ur Specific [place] 1.015 (1.005-1.030) Urine Protein Negative (Negative) Urine Glucose (UA) Negative (Negative) mg/dL Urine Ketones Negative (Negative) Urine Blood Negative (Negative) Urine Nitrite Negative (Negative) Urine Bilirubin Negative (Negative) Urine Urobilinogen 1.0 A (0.2) mg/dL Ur Leukocyte Esterase Negative (Negative) U Hyaline Cast (Auto) NONE SEEN (0-2) /LPF Urine Microscopic RBC 0-2 (0-5) /HPF Urine Microscopic WBC 3-5 (0-5) /HPF Ur Epithelial Cells Few (None Seen) /HPF Urine Bacteria None Seen (None Seen) /HPF Urine Yeast (Budding) Few A (None Seen) /HPF Urine Culture Reflexed NO (NO) Urine Opiates Level POSITIVE A (NEGATIVE) Ur Methadone NEGATIVE (NEGATIVE) Urine Barbiturates NEGATIVE (NEGATIVE) Ur Phencyclidine (PCP) NEGATIVE (NEGATIVE) Urine Amphetamine NEGATIVE (NEGATIVE) U Benzodiazepine Level POSITIVE A (NEGATIVE) Urine Cocaine NEGATIVE (NEGATIVE) Urine Marijuana (THC) POSITIVE A (NEGATIVE) 03/05/23 Range/Units 08:10 WBC 3.0 L (4.0-10.5) x10^3/uL RBC 3.74 L (4.1-5.4) x10^6/uL Hgb 12.4 (12.0-16.0) g/dL Hct 36.2 (35-47) % MCV 96.8 (78-100) fL MCH 33.2 H (26-32) pg MCHC 34.3 (32-36) g/dL RDW 11.9 (11.5-14.0) % Plt Count 204 (150-450) x10^3/uL MPV 9.5 (7.5-11.0) fL Gran % 40.2 (36.0-66.0) % Immature Gran % (Auto) 0.3 (0.00-0.4) % Nucleat RBC Rel Count 0.0 (0.00-0.1) % Eos # (Auto) 0.05 (0-0.5) x10^3/uL Immature Gran # (Auto) 0.01 (0.00-0.03) x10^3u/L Absolute Lymphs (auto) 1.45 (1.0-4.6) x10^3/uL Absolute Monos (auto) 0.29 (0.0-1.3) x10^3/uL Absolute Nucleated RBC 0.00 (0.00-0.01) x10^3u/L Lymphocytes % 47.7 H (24.0-44.0) % Monocytes % 9.5 (0.0-12.0) % Eosinophils % 1.6 (0.00-5.0) % Basophils % 0.7 (0.0-0.4) % Absolute Granulocytes 1.22 L (1.4-6.9) x10^3/uL Basophils # 0.02 (0-0.4) x10^3/uL Sodium (137-145) mmol/L Potassium (3.5-5.1) mmol/L Chloride (98-107) mmol/L Carbon Dioxide (22-30) mmol/L Anion Gap (5-15) MEQ/L BUN (7-17) mg/dL Creatinine (0.52-1.04) mg/dL Estimated GFR ML/MIN Glucose (74-106) mg/dL Calcium (8.4-10.2) mg/dL Total Bilirubin (0.2-1.3) mg/dL AST (14-36) U/L ALT (0-35) U/L Alkaline Phosphatase (38-126) U/L Serum Total Protein (6.3-8.2) g/dL Albumin (3.5-5.0) g/dL Urine Color (Yellow) Urine Appearance (Clear) Urine pH (4.6-8.0) Ur Specific [place] (1.005-1.030) Urine Protein (Negative) Urine Glucose (UA) (Negative) mg/dL Urine Ketones (Negative) Urine Blood (Negative) Urine Nitrite (Negative) Urine Bilirubin (Negative) Urine Urobilinogen (0.2) mg/dL Ur Leukocyte Esterase (Negative) U Hyaline Cast (Auto) (0-2) /LPF Urine Microscopic RBC (0-5) /HPF Urine Microscopic WBC (0-5) /HPF Ur Epithelial Cells (None Seen) /HPF Urine Bacteria (None Seen) /HPF Urine Yeast (Budding) (None Seen) /HPF Urine Culture Reflexed (NO) Urine Opiates Level (NEGATIVE) Ur Methadone (NEGATIVE) Urine Barbiturates (NEGATIVE) Ur Phencyclidine (PCP) (NEGATIVE) Urine Amphetamine (NEGATIVE) U Benzodiazepine Level (NEGATIVE) Urine Cocaine (NEGATIVE) Urine Marijuana (THC) (NEGATIVE) - Progress Progress: improved, pain not gone completely, re-examined Progress Note: 03/05/23 07:44 This patient's medical issue is 1 of low to moderate complexity. Level complex in the workup performed is based on review of the patient's past medical history, review the patient's medication list, review of the patient's drug allergy list, history present illness and physical findings on examination. Workup in this patient includes placement of intravenous line, CBC, CMP, normal saline solution, intravenous Dilaudid, intravenous Zofran, intravenous Solu- Medrol, intravenous orphenadrine, urinalysis, urine drug screen, CT scan of the lumbar spine. 03/05/23 09:00 CT scan of the lumbar spine without contrast was compared to that same study that was performed on 02/10/2023. There are no changes. There are no new/acute abnormalities. 03/05/23 09:29 Patient has no acute, emergent laboratory data results. I interpreted these lab results. I am awaiting the urinalysis. Patient stated that she can take Lupton 5/325. She has taken this in the past wi thout any issues. 03/05/23 10:20 Reexamine the patient. Her pain has improved. We are awaiting the urinalysis results to determine if she has a urinary tract infection that needs to be treated. Counseled pt/family regarding: lab results, diagnosis, need for follow-up, rad results Medical Desision Making - Diagnostic Testing Diagnostic test were ordered, analyzed, and reviewed by me: Yes Radiological Interpretation: Reviewed by me, Teleradiologist Report - Risk of complications The pt has a mod risk of morbidity or mortality based on: Need for prescription drug management - Departure Departure Disposition: Home Clinical Impression: Acute exacerbation of chronic low back pain Condition: Stable Critical Care Time: No Referrals: VANE MOTA [Primary Care Provider] - Follow up/PCP as directed Additional Instructions: Drink plenty fluids. Take your medication as prescribed. Call your primary care provider today, 03/05/2023, to make arrangements for follow-up appointment and to have the office see if they can move your appointment to see your back specialist to an earlier date and time. Stop your tramadol and gabapentin while taking your new Lupton and orphenadrine prescription. Prescriptions: Hydrocodone/APAP 5/325 [Lupton 5/325 mg] 1 each PO Q8H PRN PRN #6 tablet MDD 3 PRN Reason: Pain Prednisone 10 mg [Deltasone 10 mg] 10 mg PO TID #12 tablet Orphenadrine Citrate 100 mg [Norflex 100 MG Tablet] 100 mg PO BID #10 tab
[2023-03-05] MEDS ORDERED: Zofran 4 MG/2 ML VIAL IV ONE (07:46)
[2023-03-05] MEDS ORDERED: Hydromorphone 1 mg/ml Injection IV ONE (07:46)
[2023-03-05] MEDS ORDERED: solu-MEDROL 125 MG, Sterile H2O 10 ml 2 ML IV ONE ×2 (07:47)
[2023-03-05] MEDS ORDERED: Norflex 60 MG/2 ML IV ONE (07:47)
[2023-03-05] MEDS ORDERED: Norflex 60 MG/2 ML ONE (07:50)
[2023-03-05] MEDS ORDERED: Zofran 4 MG/2 ML VIAL ONE (07:50)
[2023-03-05] MEDS ORDERED: Sodium Chloride 0.9% 1000 ML 1,000 ML ONE (07:51)
[2023-03-05] MEDS ORDERED: Hydromorphone 1 mg/ml Injection ONE (07:51)
[2023-03-05] MEDS ORDERED: solu-MEDROL ONE (07:51)
[2023-03-05] MEDS ORDERED: Sodium Chloride 0.9% 1000 ML 1,000 ML IV SCH (08:00)
[2023-03-05] MEDS ORDERED: Sterile H2O 10 ml IJ ONE (08:08)
[2023-03-05 08:28] LABS: Absolute Neutrophil Ct (ANC) 1.22 x10^3/uL (1.4-6.9); BASOPHIL % 0.7 % (0.0-0.4); Basophil (Absolute #) 0.02 x10^3/uL (0-0.4); Eosinophil % 1.6 % (0.00-5.0); Eosinophil (Absolute #) 0.05 x10^3/uL (0-0.5); Hematocrit 36.2 % (35-47); Hemoglobin 12.4 g/dL (12.0-16.0); IMMATURE GRAN # 0.01 x10^3u/L (0.00-0.03); IMMATURE GRAN % 0.3 % (0.00-0.4); Lymphocyte (Absolute #) 1.45 x10^3/uL (1.0-4.6); Lymphocytes % 47.7 % (24.0-44.0); Mean Cell Volume 96.8 fL (78-100); Mean Corpuscular Hemoglobin 33.2 pg (26-32); Mean Corpuscular Hgb Concent. 34.3 g/dL (32-36); Mean Platelet Volume 9.5 fL (7.5-11.0); Monocyte (Absolute #) 0.29 x10^3/uL (0.0-1.3); Monocytes % 9.5 % (0.0-12.0); Neutrophil % 40.2 % (36.0-66.0); Platelet Count 204 x10^3/uL (150-450); Red Blood Count 3.74 x10^6/uL (4.1-5.4); Red Cell Distribution Width 11.9 % (11.5-14.0)
[2023-03-05 08:34] LABS: ALBUMIN 4.2 g/dL (3.5-5.0); ANION GAP 13.3 MEQ/L (5-15); BILIRUBIN,TOTAL 1.1 mg/dL (0.2-1.3); Calcium 9.2 mg/dL (8.4-10.2); Creatinine 1 0.65 mg/dL (0.52-1.04); EST GLOMERULAR FILTRATION RATE 108.5 ML/MIN; Potassium 4.1 mmol/L (3.5-5.1); Total Protein 7.1 g/dL (6.3-8.2)
--- NOTE | 2023-03-05 08:37 | XRAY ---
Indication: Pain. Multiple contiguous axial images obtained through the lumbar spine. Sagittal and coronal reformatted images obtained. Comparison: February 10, 2023. Axial images again negative for acute fracture, suspicious bony lesions, or spinal canal stenosis. Stable minimal/mild multilevel anterior endplate spurring and right L5-S1 degenerative facet hypertrophy. Remaining facets are again bilaterally symmetric. Sagittal and coronal reformatted images again demonstrate normal lumbar alignment. Stable T12-L2 disc space narrowing. No acute compression fracture or subluxation. Visualized noncontrasted soft tissues remain unremarkable. Impression: No change compared to February 10, 2023. Stable multilevel degenerative endplate spurring and right L5-S1 degenerative facet hypertrophy further detailed on MRI lumbar spine February 11, 2023. No new/acute abnormalities.
[2023-03-05 09:33] VITALS: O2SAT 98
[2023-03-05 11:05] LABS: Amphetamine,Urine NEGATIVE (NEGATIVE); Barbiturate,Urine NEGATIVE (NEGATIVE); Benzodiazepine,Urine POSITIVE (NEGATIVE); Cocaine,Urine NEGATIVE (NEGATIVE); Methadone,Urine NEGATIVE (NEGATIVE); Opiate,Urine POSITIVE (NEGATIVE); PCP,Urine NEGATIVE (NEGATIVE); THC,Urine POSITIVE (NEGATIVE)
[2023-03-05 11:12] LABS: Appearance Clear (Clear); Bacteria None Seen /HPF (None Seen); Bilirubin Negative (Negative); Blood Negative (Negative); Epithelial Cells Few /HPF (None Seen); Glucose, Urine Negative (Negative); Hyaline Casts NONE SEEN /LPF (0-2); Ketones Negative (Negative); Leukocyte Esterase Negative (Negative); Nitrite Negative (Negative); Protein,Urine Dip Negative (Negative); RBC 0-2 /HPF (0-5); Specific Gravity 1.015 (1.005-1.030)
[2023-03-05 11:13] LABS: ADD URINE CULTURE? NO (NO); Budding Yeast Few /HPF (None Seen)
[2023-03-05 11:21] VITALS: BP 110/69; PULSE 55; RESP 16
== END 2023-03-05 11:39 | disposition home or self-care (01) ==
LOC: ED 07:19
DX: G89.29 Other chronic pain (principal); M54.50 Low back pain, unspecified; Z79.891 Long term (current) use of opiate analgesic; Z79.52 Long term (current) use of systemic steroids; Z79.899 Other long term (current) drug therapy; Z28.310 Unvaccinated for COVID-19
CPT/HCPCS: 36000; 36415; 72131; 80053; 80307; 81001; 85025; 96374; 96375; 99284; J1170; J2360; J2405; J2930

== ENCOUNTER 2023-03-14 10:00 | Emergency (ER) | payer OTHER ==
[2023-03-14 10:19] VITALS: RESP 20; TEMP 97.7; O2SAT 98
[2023-03-14] MEDS ORDERED: SUBLIMAZE 100 MCG/2 ML IM ONE (10:31)
[2023-03-14] MEDS ORDERED: TORAdol 30 mg Injection IM ONE (10:31)
--- NOTE | 2023-03-14 10:35 | ERPHSYRPT ---
- History of Present Illness Time Seen by Provider: 03/14/23 10:32 Source: patient, family Exam Limitations: no limitations Patient Subjective Stated Complaint: C/O Severe back pain. Pain is along spine to mid and lower part of back. States pain is constanst with intermittent sharp pains shooting down her right leg. Triage Nursing Assessment: Patient brought back to ER in W/C. She is crying. No SOB. No cough. Skin tone normal. Patient restless and unable to lay on her back in bed. Patient laying on left side. 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 Physician History: C/O Severe back pain. Pain is along spine to mid and lower part of back. States pain is constanst with intermittent sharp pains shooting down her right leg. Recent MRI showed multiple bulging discs, has scheduled appointment on 26 mar 2023 with neurosurgeon. Patient has multiple ER visits for same problem. Timing/Duration: day(s) Back Pain Location: lumbar spine Back Pain Radiation: lower legs Severity of Pain-Max: severe Severity of Pain-Current: severe Modifying Factors: Improves With: nothing Previous symptoms: same symptoms as today Allergies/Adverse Reactions: oxycodone Allergy (Verified 03/14/23 10:08) itching Home Medications: ALPRAZolam 1 MG [Xanax 1 mg] 1 mg PO TID PRN PRN 12/31/18 [History] Ergocalciferol (Vitamin D2) [Vitamin D] 50,000 unit PO WEEKLY 12/31/18 [History] Gabapentin [Gralise] 1,800 mg PO DAILY 12/31/18 [History] Omeprazole Magnesium [Prilosec Otc] 40 mg PO BID 12/31/18 [History] Potassium Chloride 20 meq PO DAILY 12/31/18 [History] Celecoxib 200 mg PO BID 01/01/22 [History] Tramadol HCl 50 mg [Ultram 50 mg] 50 mg PO QID 01/01/22 [History] Hx Tetanus, Diphtheria Vaccination/Date Given: No Hx Influenza Vaccination/Date Given: Yes Hx Pneumococcal Vaccination/Date Given: No Immunizations Up to Date: Yes Travel Risk - International Travel Have you traveled outside of the country in past 3 weeks: No - Coronavirus Screening Are you exhibiting any of the following symptoms?: No Close contact with a COVID-19 positive Pt in past 14-21 Days: No - Vaccine Status Have you recieved a Covid-19 vaccination: No - Review of Systems Constitutional: No Fever, No Chills Eyes: No Symptoms Ears, Nose, & Throat: No Symptoms Respiratory: No Cough, No Dyspnea Cardiac: No Chest Pain, No Edema, No Syncope Abdominal/Gastrointestinal: No Abdominal Pain, No Nausea, No Vomiting, No Diarrhea Genitourinary Symptoms: No Dysuria Musculoskeletal: Back Pain, No Neck Pain Skin: No Rash Neurological: No Dizziness, No Focal Weakness, No Sensory Changes Psychological: No Symptoms Endocrine: No Symptoms All Other Systems: Reviewed and Negative - Past Medical History Pertinent Past Medical History: Yes Neurological History: Other ENT History: No Pertinent History Cardiac History: No Pertinent History Respiratory History: Bronchitis Endocrine Medical History: Hypothyroidism Musculoskeletal History: Degenerative Disk Disease, Osteoarthritis, Other GI Medical History: GERD History: Other Psycho-Social History: Anxiety, Depression Female Reproductive Disorders: Endometriosis Other Medical History: GOITER, CHRONIC BACK PAIN, Bulging discs L1-L2, L3-L4, L4-L5, L5-S1, 7.8 mm parafacetal cyst protruding within the spinal canal and compressiong the thecal sac - Past Surgical History Past Surgical History: Yes Neuro Surgical History: No Pertinent History Cardiac: No Pertinent History Respiratory: No Pertinent History Gastrointestinal: Cholecystectomy, Exploratory Laparoscopy Genitourinary: No Pertinent History Musculoskeletal: Joint Replacement Female Surgical History: Hysterectomy Other Surgical History: pt has had multiple surgeries.... 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 - Social History Smoking Status: Never smoker How long have you smoked: 30 years Exposure to second hand smoke: No Drug Use: marijuana Patient Lives Alone: No - Female History Hx Now: No - Nursing Vital Signs Nursing Vital Signs: Initial Vital Signs Temperature 97.7 F 03/14/23 10:08 Pulse Rate 80 03/14/23 10:08 Respiratory Rate 20 03/14/23 10:08 Blood Pressure 145/83 03/14/23 10:08 O2 Sat by Pulse Oximetry 98 03/14/23 10:08 Pain Scale Pain Intensity 10 - Physical Exam General Appearance: no apparent distress, alert Eye Exam: PERRL/EOMI, eyes nml inspection Neck Exam: normal inspection, non-tender, supple, full range of motion, No meningismus, No midline tenderness Respiratory Exam: normal breath sounds, lungs clear, No respiratory distress Cardiovascular Exam: regular rate/rhythm, normal heart sounds Gastrointestinal Exam: soft, No tenderness, No mass Extremity Exam: normal inspection, normal range of motion, No calf tenderness, No pedal edema Neurologic Exam: alert, oriented x 3, cooperative, 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, normal mood/affect, nml station & gait, sensation nml, No motor deficits Skin Exam: normal color, warm, dry, No rash SpO2: 98 - Course Nursing assessment & vital signs reviewed: Yes - Progress Progress: improved, pain not gone completely Counseled pt/family regarding: diagnosis, need for follow-up Medical Desision Making - Independent Historian Additional History obtained from: Spouse - Risk of complications Minimal Risk: Minimal risk of morbidity - Departure Departure Disposition: Home Clinical Impression: Acute exacerbation of chronic low back pain Condition: Stable Critical Care Time: No Referrals: VANE MOTA [Primary Care Provider] - Follow up/PCP as directed Instructions: Low Back Pain (DC) Additional Instructions: Discharge/Care Plan JAKUB VIDAL was seen on 03/14/23 in the Emergency Room. The patient was counseled regarding Diagnosis,Lab results, Imaging studies, need for follow up and when to return to the Emergency Room. Prescriptions given: Discharge Note I have spoken with the patient and/or caregivers. I have explained the patient's condition, diagnosis and treatment plan based on the information available to me at this time. I have answered the patient's and/or caregiver's questions and addressed any concerns. The patient and/or caregivers have as good understanding of the patient's diagnosis, condition and treatment plan as can be expected at this point. The vital signs have been stable. The patient's condition is stable and appropriate for discharge from the emergency department. The patient will pursue further outpatient evaluation with the primary care physician or other designated or consulting physician as outlined in the discharge instructions. The patient and/or caregivers are agreeable to this plan of care and follow-up instructions have been explained in detail. The patient and/or caregivers have received these instruction. The patient/and or caregivers are aware that any significant change in condition or worsening of symptoms should prompt an immediate return to this or the closest emergency department or call 911. JAKUB VIDAL was seen on 03/14/23 n the Emergency Room. At that time you were treated for an emergent condition, during your visit Laboratory, Radiology and/or other procedures may have been ordered. It is very important that you follow-up with your Primary Care Physician VANE MOTA within the next 24-48 hours to review your Emergency Room visit and the final results of testing that was ordered. Some test results such as Urine Cultures, Blood Cultures, and other cultures if ordered will not be finalized for 24-48 hours. If you do not have a Primary Care Provider please call the medical records department at [phone] ext [phone] to obtain a copy of your results or you may sign into our patient portal to obtain these results by visiting us @ [email or web address] and completing the following steps: 1. Click on the Patient Portal link 2. Click the Patient Self Enrollment Link to complete the enrollment form and entering your 3. Once the enrollment form is completed you will receive an email with a temporary ID and password at the email address you provided. 4. Next choose a user name and password. Your user name must be at least 4 characters long and your password must be at least 4 characters long. 5. Choose a security question from the list and provide your answer to the question. If you already have signed into the Health Portal you may access your Health Care Information 06/10 by the following steps: 1. Login to our website @ [email or web address] 2. Enter your original user name and password. FAQS The [facility] Health Portal is an online tool that contains your Lab Results, Radiology Reports, Visit History, Discharge Instructions and Health Summary Lab and Radiology Results will not be available for 72 hours on the portal. The Portal is a secure site, passwords are encryted and URLs are re-written so they cannot be copied and pasted. You and authorized family members are the only ones who can access your Portal. Also there is a timeout feature that protects your information if you leave the Portal page open. If you have technical difficulty please use the Contact Us link on the page this will allow you to submit any questions you have regarding the Portal or you may contact the Medical Record Department at [phone].
[2023-03-14] MEDS ORDERED: SUBLIMAZE 100 MCG/2 ML ONE (11:05)
[2023-03-14] MEDS ORDERED: TORAdol 30 mg Injection ONE (11:05)
[2023-03-14 11:21] VITALS: BP 140/80; PULSE 84
== END 2023-03-14 11:47 | disposition home or self-care (01) ==
LOC: ED 10:00
DX: G89.29 Other chronic pain (principal); M54.50 Low back pain, unspecified; M54.6 Pain in thoracic spine; Z79.899 Other long term (current) drug therapy; Z79.891 Long term (current) use of opiate analgesic; Z28.310 Unvaccinated for COVID-19
CPT/HCPCS: 96372; 99283; J1885; J3010

== ENCOUNTER 2023-07-13 15:17 | Emergency (ER) | payer OTHER ==
[2023-07-13 15:32] VITALS: TEMP 97.8
[2023-07-13 16:09] LABS: Absolute Neutrophil Ct (ANC) 1.83 x10^3/uL (1.4-6.9); BASOPHIL % 0.5 % (0.0-0.4); Basophil (Absolute #) 0.02 x10^3/uL (0-0.4); Eosinophil % 1.6 % (0.00-5.0); Eosinophil (Absolute #) 0.06 x10^3/uL (0-0.5); Hematocrit 35.6 % (35-47); Hemoglobin 12.3 g/dL (12.0-16.0); Lymphocyte (Absolute #) 1.51 x10^3/uL (1.0-4.6); Lymphocytes % 39.8 % (24.0-44.0); Mean Cell Volume 94.2 fL (78-100); Mean Corpuscular Hemoglobin 32.5 pg (26-32); Mean Corpuscular Hgb Concent. 34.6 g/dL (32-36); Mean Platelet Volume 9.1 fL (7.5-11.0); Monocyte (Absolute #) 0.37 x10^3/uL (0.0-1.3); Monocytes % 9.8 % (0.0-12.0); Neutrophil % 48.3 % (36.0-66.0); Platelet Count 170 x10^3/uL (150-450); Red Blood Count 3.78 x10^6/uL (4.1-5.4); Red Cell Distribution Width 12.1 % (11.5-14.0); White Blood Count 3.8 x10^3/uL (4.0-10.5)
[2023-07-13] MEDS ORDERED: Zofran 4 MG/2 ML VIAL ONE (16:09)
[2023-07-13] MEDS ORDERED: Sterile H2O 10 ml IJ ONE (16:09)
[2023-07-13] MEDS ORDERED: Ativan 2 MG/1 ML VIAL ONE (16:10)
--- NOTE | 2023-07-13 16:10 | ERPHSYRPT ---
- History of Present Illness Time Seen by Provider: 07/13/23 15:35 Source: patient Exam Limitations: no limitations Patient Subjective Stated Complaint: Pt states "The second week of this month, I got a steroid shot in my right groin into my hip and about 4 dyas ago my legs have felt like they are on fire, my groin is on fire and lower abdomen feels like fire and under my breasts is burning now." Triage Nursing Assessment: PT presented alert and oriented X 3, skin wpd. Pt ambualtes with a limp. Pt ambulates wide legged, speaks rapidly and unc omfortable when she sits. Physician History: This is a 47-year-old white female patient who has known chronic low back pain and was seen by her orthopedic surgeon, per her report, approximately 3 weeks ago for injection of steroid into the right groin/pubic bone region. Patient has MRI scan evidence for multiple level lumbar spine disc bulges and neuroforaminal narrowing as well as lumbar para facetal cysts. These have been chronic. Approximately 3 to 4 days ago, patient noticed severe pain in the right groin region where the patient received a steroid injection. She now complains of bilateral hip pain, lower back pain and left groin pain. She describes the pain as a burning. It worsens with ambulation. She stated that it also is worse when even close her sheets are on her skin. Patient denies loss of sensation or numbness in her feet. She denies any recent trauma. She denies urinary or bowel incontinence. Patient has multiple medical issues including diabetes, gastroesophageal reflux disease. The nurse verified that the patient is on cyclobenzaprine,, gabapentin and alprazolam. Timing/Duration: day(s), worse Severity: moderate Modifying Factors: Improves With: movement, other (Close and sheets running against her skin in those areas) Associated Symptoms: denies symptoms Allergies/Adverse Reactions: No Known Drug Allergies Allergy (Verified 07/13/23 15:32) Home Medications: ALPRAZolam 1 MG [Xanax 1 mg] 1 mg PO TID PRN PRN 12/31/18 [History] Gabapentin [Gralise] 1,800 mg PO DAILY 12/31/18 [History] Omeprazole Magnesium [Prilosec Otc] 40 mg PO BID 12/31/18 [History] Potassium Chloride 20 meq PO DAILY 12/31/18 [History] Cyclobenzaprine HCl 10 mg [Cyclobenzaprine 10 MG] 10 mg PO DAILY 07/13/23 [History] Semaglutide [Ozempic] 1 mg SQ WEEKLY 07/13/23 [History] Hx Tetanus, Diphtheria Vaccination/Date Given: No Hx Influenza Vaccination/Date Given: Yes Hx Pneumococcal Vaccination/Date Given: No Immunizations Up to Date: No Travel Risk - International Travel Have you traveled outside of the country in past 3 weeks: No - Emerging Infectious Disease Are you exhibiting symptoms associated with any current EIDs: No - Review of Systems Constitutional: No Symptoms Eyes: No Symptoms Ears, Nose, & Throat: No Symptoms Respiratory: No Symptoms Cardiac: No Symptoms Abdominal/Gastrointestinal: No Symptoms Genitourinary Symptoms: No Symptoms Musculoskeletal: Back Pain, Joint Pain (Bilateral hip and groin pain) Skin: No Symptoms (Low back pain) Neurological: No Symptoms Psychological: No Symptoms Endocrine: No Symptoms Hematologic/Lymphatic: No Symptoms - Past Medical History Pertinent Past Medical History: Yes Neurological History: No Pertinent History ENT History: No Pertinent History Cardiac History: High Cholesterol Respiratory History: Bronchitis Endocrine Medical History: Hypoglycemia Musculoskeletal History: Other GI Medical History: GERD History: Other Psycho-Social History: Anxiety, Depression Female Reproductive Disorders: Endometriosis Other Medical History: CHARCOT ANDREIA TOOTH DISEASE, ROTATOR CUFF REPAIR RIGHT, RIGHT HAND RECONSTRUCTION WITH HARDWARE, BILATERAL CARPAL TUNNEL, FOOT RECONSTRUCTION BILATERAL CHILD, SURGERY BILATERAL ANKLES FOR TENDON ISSUES (PATIENT REPORTS 2-3 ON EACH LEG). - Past Surgical History Past Surgical History: Yes Neuro Surgical History: No Pertinent History Cardiac: No Pertinent History Respiratory: No Pertinent History Gastrointestinal: Cholecystectomy, Exploratory Laparoscopy Genitourinary: No Pertinent History Musculoskeletal: Joint Replacement Female Surgical History: Hysterectomy Other Surgical History: pt has had multiple surgeries.... 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 - Female History Hx Last Menstrual Period: hysterectomy Hx Now: No - Social History Smoking Status: Former smoker How long have you smoked: 30 years Exposure to second hand smoke: Yes Drug Use: marijuana Patient Lives Alone: No - Nursing Vital Signs Nursing Vital Signs: Initial Vital Signs Temperature 97.8 F 07/13/23 15:23 Pulse Rate 65 07/13/23 15:23 Respiratory Rate 20 07/13/23 15:23 Blood Pressure 169/98 07/13/23 15:23 O2 Sat by Pulse Oximetry 100 07/13/23 15:23 Pain Scale Pain Intensity 8 - Physical Exam General Appearance: no apparent distress, alert, anxiety Eye Exam: PERRL/EOMI, eyes nml inspection Ears, Nose, Throat Exam: normal ENT inspection, moist mucous membranes Neck Exam: normal inspection, non-tender, supple, full range of motion Respiratory Exam: normal breath sounds, lungs clear, airway intact, No chest tenderness, No respiratory distress Cardiovascular Exam: regular rate/rhythm, normal heart sounds, normal peripheral pulses Gastrointestinal/Abdomen Exam: soft, normal bowel sounds, other (Painful groins to palpation), No tenderness Pelvic Exam: other (Painful groins to palpation. 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 tested, nml cerebellar function, nml station & gait Lymphatic Exam: No adenopathy SpO2 Interpretation: normal SpO2: 100 O2 Delivery: Room Air - Course Nursing assessment & vital signs reviewed: Yes Ordered Tests: Active Orders 24 hr Category Date Time Status IV Insertion STAT Care 07/13/23 15:51 Active ABDOMEN AND PELVIS W/0 CONTRAS [CT] Stat Exams 07/13/23 15:51 Completed RECONSTRUCTION [CT] Stat Exams 07/13/23 15:53 Taken CBC W DIFF Stat Lab 07/13/23 15:17 Completed CMP Stat Lab 07/13/23 15:17 Completed MAG [MAGNESIUM] Stat Lab 07/13/23 15:17 Completed Medication Summary Discontinued Medications Generic Name Dose Route Start Last Admin Trade Name Freq PRN Reason Stop Dose Admin Methylprednisolone Sodium 0 mg 07/13/23 15:55 07/13/23 16:16 Succinate 125 mg/ Sterile IV 07/13/23 15:56 125 mg Water 2 ml STAT ONE Administration Hydromorphone HCl 0.5 mg 07/13/23 15:51 07/13/23 16:19 Hydromorphone 1 Mg/1ml Inj IV 07/13/23 15:52 0.5 mg STAT ONE Administration Hydromorphone HCl Confirm 07/13/23 16:11 Hydromorphone 1 Mg/1ml Inj Administered 07/13/23 16:12 Dose 1 mg .ROUTE .STK-MED ONE Lorazepam 1 mg 07/13/23 15:54 07/13/23 16:19 Lorazepam 2 Mg/1 Ml 2 Mg Vial IV 07/13/23 15:55 1 mg STAT ONE Administration Lorazepam Confirm 07/13/23 16:10 Lorazepam 2 Mg/1 Ml 2 Mg Vial Administered 07/13/23 16:11 Dose 2 mg .ROUTE .STK-MED ONE Methylprednisolone Sodium Succinate Confirm 07/13/23 16:12 Methylprednis Sod Succ 125 Mg/2 Ml Vial Administered 07/13/23 16:13 Dose 125 mg .ROUTE .STK-MED ONE Ondansetron HCl 4 mg 07/13/23 15:51 07/13/23 16:15 Ondansetron Hcl 4 Mg/2 Ml Vial IV 07/13/23 15:52 4 mg STAT ONE Administration Ondansetron HCl Confirm 07/13/23 16:09 Ondansetron Hcl 4 Mg/2 Ml Vial Administered 07/13/23 16:10 Dose 4 mg .ROUTE .STK-MED ONE Sterile Water Confirm 07/13/23 16:09 Water For Injection,Sterile 10 Ml Vial Administered 07/13/23 16:10 Dose 10 ml IJ .STK-MED ONE Lab/Rad Data: Laboratory Result Diagrams 07/13/23 15:17 07/13/23 15:17 Laboratory Results 07/13/23 07/13/23 Range/Units 15:17 15:17 WBC 3.8 L (4.0-10.5) x10^3/uL RBC 3.78 L (4.1-5.4) x10^6/uL Hgb 12.3 (12.0-16.0) g/dL Hct 35.6 (35-47) % MCV 94.2 (78-100) fL MCH 32.5 H (26-32) pg MCHC 34.6 (32-36) g/dL RDW 12.1 (11.5-14.0) % Plt Count 170 (150-450) x10^3/uL MPV 9.1 (7.5-11.0) fL Gran % 48.3 (36.0-66.0) % Immature Gran % (Auto) 0.0 (0.00-0.4) % Nucleat RBC Rel Count 0.0 (0.00-0.1) % Eos # (Auto) 0.06 (0-0.5) x10^3/uL Immature Gran # (Auto) 0.00 (0.00-0.03) x10^3u/L Absolute Lymphs (auto) 1.51 (1.0-4.6) x10^3/uL Absolute Monos (auto) 0.37 (0.0-1.3) x10^3/uL Absolute Nucleated RBC 0.00 (0.00-0.01) x10^3u/L Lymphocytes % 39.8 (24.0-44.0) % Monocytes % 9.8 (0.0-12.0) % Eosinophils % 1.6 (0.00-5.0) % Basophils % 0.5 (0.0-0.4) % Absolute Granulocytes 1.83 (1.4-6.9) x10^3/uL Basophils # 0.02 (0-0.4) x10^3/uL Sodium 140 (135-145) mmol/L Potassium 4.3 (3.5-5.1) mmol/L Chloride 108 H (98-107) mmol/L Carbon Dioxide 26 (22-30) mmol/L Anion Gap 10.0 (5-15) MEQ/L BUN 13 (7-17) mg/dL Creatinine 0.64 (0.52-1.04) mg/dL Estimated GFR 108.9 ML/MIN Glucose 85 (74-106) mg/dL Calcium 9.2 (8.4-10.2) mg/dL Magnesium 1.9 (1.6-2.3) mg/dL Total Bilirubin 0.70 (0.2-1.3) mg/dL AST 21 (14-36) U/L ALT 16 (0-35) U/L Alkaline Phosphatase 48 (38-126) U/L Serum Total Protein 6.7 (6.3-8.2) g/dL Albumin 4.2 (3.5-5.0) g/dL - Progress Progress: improved, pain not gone completely Progress Note: 07/13/23 16:11 My medical decision making and the assignment of moderate level of complexity to this patient's medical issue is based on review of the patient's past medical history, review of the patient's medication list, review patient drug allergy list, history of present illness and physical findings on examination. The workup in this patient includes placement of intravenous line, CBC, CMP, magn esium level, CT scan of the abdomen and pelvis without contrast with lumbar reconstruction. Differential diagnosis includes acute exacerbation of chronic low back pain, abscess or hematoma in the area of the injection right groin, intra- abdominal/intrapelvic acute abnormality, electrolyte abnormality 07/13/23 17:07 I interpreted the patient's laboratory data results. There is no evidence of acute medical issue based on the patient's laboratory data results. CT scan of the abdomen pelvis as well as lumbar reconstruction by CT was interpreted by the radiologist and I reviewed the impression. There is new mild fecal stasis present. There are minimal degenerative changes throughout the thoracolumbar spine and bilateral hips. Counseled pt/family regarding: diagnosis, need for follow-up, rad results Medical Desision Making - Diagnostic Testing Diagnostic test were ordered, analyzed, and reviewed by me: Yes Radiological Interpretation: Reviewed by me, Teleradiologist Report - Risk of complications The pt has a mod risk of morbidity or mortality based on: Need for prescription drug management - Departure Departure Disposition: Home Clinical Impression: Bilateral hip pain, Right groin pain Condition: Stable Critical Care Time: No Referrals: VANE MOTA [Primary Care Provider] - Follow up/PCP as directed Additional Instructions: Take all your medications as prescribed. Call your pain specialist, primary care provider and support services specialist that gave you the steroid injection tomorrow, 07/14/2023, to make arranges for follow-up appointment to be seen in the next 3 to 5 days. Monitor your blood sugar levels closely while taking the steroids Prescriptions: Oxycodone HCl/Acetaminophen [Percocet 5-325 mg Tablet] 1 each PO Q12H PRN PRN #4 tablet MDD 2 PRN Reason: Moderate To Severe Pain Prednisone 10 mg [Deltasone 10 mg] 10 mg PO TID #12 tablet
[2023-07-13] MEDS ORDERED: Hydromorphone 1 mg/ml Injection ONE (16:11)
[2023-07-13] MEDS ORDERED: solu-MEDROL ONE (16:12)
[2023-07-13] MEDS: Zofran 4 MG/2 ML VIAL IV ONE (16:15)
[2023-07-13] MEDS: solu-MEDROL 125 MG, Sterile H2O 10 ml 2 ML IV ONE (16:16)
[2023-07-13] MEDS: Ativan 2 MG/1 ML VIAL IV ONE (16:19)
[2023-07-13] MEDS: Hydromorphone 1 mg/ml Injection IV ONE (16:19)
[2023-07-13 16:23] LABS: ALBUMIN 4.2 g/dL (3.5-5.0); BILIRUBIN,TOTAL 0.7 mg/dL (0.2-1.3); Calcium 9.2 mg/dL (8.4-10.2); Creatinine 1 0.64 mg/dL (0.52-1.04); EST GLOMERULAR FILTRATION RATE 108.9 ML/MIN; MAGNESIUM 1.9 mg/dL (1.6-2.3); Potassium 4.3 mmol/L (3.5-5.1); Total Protein 6.7 g/dL (6.3-8.2)
[2023-07-13 16:27] VITALS: BP 123/84; PULSE 64; RESP 16
--- NOTE | 2023-07-13 17:04 | XRAY ---
Indication: Pain right inguinal/groin and both hips. Multiple contiguous axial images obtained through the abdomen and pelvis without contrast. Comparison: March 06, 2014 Lung bases demonstrates minimal dependent atelectasis. No infiltrate or effusion. Heart not enlarged. Noncontrasted stomach and bowel loops appear nonobstructed again with normal appendix. Mild diffuse colonic fecal debris greatest in ascending and transverse colon. Again hysterectomy. Interval cholecystectomy. No free fluid/air. Remaining liver, pancreas, spleen, adrenal glands, kidneys, ureters, bladder and aorta are unremarkable for noncontrast exam. Osseous structures intact again with minimal degenerative throughout thoracolumbar spine and both hips. New minimal dextroscoliosis centered at L2. Impression: 1. New mild diffuse fecal stasis. 2. Minimal degenerative changes throughout thoracolumbar spine and both hips. Minimal dextroscoliosis. 3. Remaining CT abdomen/pelvis without contrast exam is negative.
[2023-07-13 17:12] VITALS: O2SAT 100
--- NOTE | 2023-07-13 17:14 | XRAY ---
Indication: Pain right inguinal/groin and both hips. Sagittal, coronal, and axial reformatted images lumbar spine obtained using raw data from same day CT abdomen/pelvis. Comparison: March 05, 2023 Axial images again negative for acute fracture, suspicious bony lesions, or spinal canal stenosis. Stable minimal multilevel anterior endplate spurring and moderate right L5-S1 degenerative facet hypertrophy. New L5-S1 posterior paraspinal soft tissues changes without focal solid/cystic soft tissue mass. Sagittal and coronal reformatted images again demonstrates normal lumbar lordosis and T12-L2 disc space narrowing. New minimal dextroscoliosis centered at L2. Again no acute compression fracture or subluxation. CT abdomen/pelvis reported separately. Impression: 1. New L5-S1 posterior paraspinal soft tissue changes. Correlate with patient's surgical history. 2. Stable multilevel degenerative endplate changes further detailed on MRI lumbar spine February 11, 2023. Incidental minimal dextroscoliosis.
== END 2023-07-13 17:46 | disposition home or self-care (01) ==
LOC: ED 15:17
DX: M25.551 Pain in right hip (principal); M25.552 Pain in left hip; R10.2 Pelvic and perineal pain; R20.8 Other disturbances of skin sensation; M54.50 Low back pain, unspecified; E11.9 Type 2 diabetes mellitus without complications; E78.5 Hyperlipidemia, unspecified; Z79.85 Long-term (current) use of injectable non-insulin antidiabetic drugs; Z79.52 Long term (current) use of systemic steroids; Z79.891 Long term (current) use of opiate analgesic; Z79.899 Other long term (current) drug therapy
CPT/HCPCS: 36000; 36415; 74176; 76376; 80053; 83735; 85025; 96374; 96375; 99284; J1170; J2060; J2405; J2919

== ENCOUNTER 2023-11-25 09:39 | Day surgery (SDC) | payer OTHER ==
[2012-03-16 17:16] VITALS: BP 114/68
[2023-11-25] MEDS ORDERED: BUPIVACAINE 0.5% VIAL IJ ONE (09:40)
[2023-11-25] MEDS ORDERED: Depo-Medrol 40 MG/ML IM ONE (09:40)
[2023-11-25] MEDS ORDERED: DIPRIVAN 200 MG/20 ML IV ONE (10:43)
[2023-11-25] MEDS ORDERED: DEXMEDETOMIDINE 80 MCG/20ML-NS IV ONE (10:46)
[2023-11-25] MEDS ORDERED: MORPHINE SULFATE 2 MG INJ ONE (11:10)
--- NOTE | 2023-11-25 12:03 | XRAY ---
Indication: Right hip and greater trochanter bursa injection. Intraoperative fluoroscopy provided for 9 seconds. 2 digital spot images submitted for interpretation demonstrates needle tips projecting lateral to right femur neck and greater trochanter. Small amount of contrast was injected for both needle tip placement. Correlate with intraoperative findings/report.
--- NOTE | 2023-11-25 12:05 | XRAY ---
9 seconds of fluoroscopy was used in surgery for a right intra-articular hip and greater trochanteric bursa injection.
[2023-11-25] MEDS ORDERED: Lactated Ringers 1,000 ML IV ONE (14:18)
== END 2023-11-25 11:29 ==
LOC: SDC-PAIN 09:39
PROVIDERS: ATTEND Psychiatry & Neurology Pain Medicine
DX: M16.11 Unilateral primary osteoarthritis, right hip (principal); M70.61 Trochanteric bursitis, right hip
CPT/HCPCS: 20610; 73502; 77002; J2270; J2704; Q9966

== ENCOUNTER 2024-02-25 10:03 | Day surgery (SDC) | payer OTHER ==
[2012-03-16 17:16] VITALS: BP 114/68
[2024-02-25] MEDS ORDERED: Decadron 4 MG INJ IV ONE (10:04)
[2024-02-25] MEDS ORDERED: Sodium Chloride 0.9(Preservative Free) 10 ML IJ ONE (10:04)
[2024-02-25] MEDS ORDERED: LIDOCAINE HCL 1% AMPUL 5 ML IJ ONE (10:04)
[2024-02-25] MEDS ORDERED: DIPRIVAN 200 MG/20 ML IV ONE ×2 (11:38→11:45)
--- NOTE | 2024-02-25 13:41 | XRAY ---
6 seconds of fluoroscopy was used in surgery for a right piriformis injection.
--- NOTE | 2024-02-25 13:41 | XRAY ---
30 seconds of fluoroscopy was used in surgery for a right L5-S2 transforaminal JOSÉ.
--- NOTE | 2024-02-26 09:05 | XRAY ---
Indication: Right L5-S1 transforaminal JOSÉ. Intraoperative fluoroscopy was provided for 30 seconds. 6 digital spot images submitted for interpretation demonstrates posterior needle tips projecting over expected right L5 and S1 nerve roots. Small amount of contrast injected for needle tip placement. Correlate with intraoperative findings/report.
--- NOTE | 2024-02-26 09:05 | XRAY ---
Indication: Right piriformis injection. Intraoperative fluoroscopy was provided for 6 seconds. 2 digital spot images submitted for interpretation demonstrates posterior needle tip projecting over expected right piriformis. Small amount of contrast injected for needle tip placement. Correlate with intraoperative findings/report.
== END 2024-02-25 12:20 | disposition home or self-care (01) ==
LOC: SDC-PAIN 10:03
PROVIDERS: ATTEND Psychiatry & Neurology Pain Medicine
DX: M54.16 Radiculopathy, lumbar region (principal); M79.18 Myalgia, other site
CPT/HCPCS: 20552; 64483; 64484; 72100; 72170; 77002; 77003; J1100; J2704; Q9966

== ENCOUNTER 2024-03-11 13:53 | Emergency (ER) | payer OTHER ==
--- NOTE | 2024-03-11 14:31 | ERPHSYRPT ---
- History of Present Illness Time Seen by Provider: 03/11/24 14:31 Historian: patient, family Exam Limitations: no limitations Physician History: This is a morbidly obese 48-year-old white female patient Dr. Oakes who presents by private vehicle with at least a month of left-sided abdominal pain that goes into her left flank. Patient also had associated vomiting. Her symptoms have been worse in the last [address] Oakes is aware per patient report. Patient has had history of endometriosis in the past and has had a hysterectomy. She is also had a cholecystectomy. Patient has history anxiety, gastroesophageal reflux disease, diabetes, hyperlipidemia and bronchitis. Timing/Duration: week(s) (4), worse Quality: sharpness, stabbing Abdominal Pain Onset Location: [facility] Pain Radiation: flank (Left flank) Severity of Pain-Max: moderate Modifying Factors: Improves With: vomiting Associated Symptoms: loss of appetite, vomiting Previous symptoms: same symptoms as today, no recent treatment Allergies/Adverse Reactions: No Known Drug Allergies Allergy (Verified 03/11/24 14:40) Home Medications: Gabapentin [Gralise] 400 mg PO TID 12/31/18 [History] Omeprazole Magnesium [Prilosec Otc] 40 mg PO BID 12/31/18 [History] Potassium Chloride 10 meq PO BID 12/31/18 [History] Cyclobenzaprine HCl 10 mg [Cyclobenzaprine 10 MG] 10 mg PO DAILY 07/13/23 [History] ALPRAZolam 1 MG [Xanax 1 mg] 1 mg PO HS 03/11/24 [History] Famotidine 40 mg PO DAILY 03/11/24 [History] Lipase/Protease/Amylase [Adali Fabian 12,000 Unit Capsule] 1 cap PO TID 03/11/24 [History] Phentermine HCl 37.5 mg PO DAILY 03/11/24 [History] Hx Tetanus, Diphtheria Vaccination/Date Given: No Hx Influenza Vaccination/Date Given: Yes Hx Pneumococcal Vaccination/Date Given: No Travel Risk - International Travel Have you traveled outside of the country in past 3 weeks: No - Emerging Infectious Disease Are you exhibiting symptoms associated with any current EIDs: No - Review of Systems Constitutional: No Symptoms Eyes: No Symptoms Ears, Nose, & Throat: No Symptoms Respiratory: No Symptoms Cardiac: No Symptoms Abdominal/Gastrointestinal: Abdominal Pain (Left upper quadrant), Vomiting Genitourinary Symptoms: No Symptoms, Flank Pain (Left side) Musculoskeletal: No Symptoms Skin: No Symptoms Neurological: No Symptoms Psychological: No Symptoms Endocrine: No Symptoms Hematologic/Lymphatic: No Symptoms Immunological/Allergic: No Symptoms All Other Systems: Reviewed and Negative - Past Medical History Pertinent Past Medical History: Yes Neurological History: No Pertinent History ENT History: No Pertinent History Cardiac History: High Cholesterol Respiratory History: Bronchitis Endocrine Medical History: Hypoglycemia Musculoskeletal History: Other GI Medical History: GERD History: Other Psycho-Social History: Anxiety, Depression Female Reproductive Disorders: Endometriosis Other Medical History: CHARCOT ANDREIA TOOTH DISEASE, ROTATOR CUFF REPAIR RIGHT, RIGHT HAND RECONSTRUCTION WITH HARDWARE, BILATERAL CARPAL TUNNEL, FOOT RECONSTRUCTION BILATERAL CHILD, SURGERY BILATERAL ANKLES FOR TENDON ISSUES (PATIENT REPORTS 2-3 ON EACH LEG). - Past Surgical History Past Surgical History: Yes Neuro Surgical History: No Pertinent History Cardiac: No Pertinent History Respiratory: No Pertinent History Gastrointestinal: Cholecystectomy, Exploratory Laparoscopy Genitourinary: No Pertinent History Musculoskeletal: Joint Replacement Female Surgical History: Hysterectomy Other Surgical History: pt has had multiple surgeries.... 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 - Female History Hx Last Menstrual Period: na - Social History Smoking Status: Former smoker How long have you smoked: 30 years Exposure to second hand smoke: Yes Drug Use: marijuana Patient Lives Alone: No - Social Determinants of Health Will the patient participate in the screening: Yes Do you worry about a steady place to live?: No In the past 12 months,have you had to go without utilities?: No Transportation Issues: No Has anyone in your support network made you feel unsafe?: No Have you or anyone in your house had to go without enough: No - Nursing Vital Signs Nursing Vital Signs: Initial Vital Signs Temperature 96.9 F 03/11/24 14:31 Pulse Rate 63 03/11/24 14:31 Blood Pressure 160/97 03/11/24 14:31 O2 Sat by Pulse Oximetry 99 03/11/24 14:31 Pain Scale Pain Intensity 10 - Physical Exam General Appearance: mild distress, alert, anxiety, obese Eye Exam: PERRL/EOMI, eyes nml inspection Ears, Nose, Throat Exam: normal ENT inspection, moist mucous membranes Neck Exam: normal inspection, non-tender, supple, full range of motion Respiratory Exam: normal breath sounds, lungs clear, airway intact, No chest tenderness, No respiratory distress Cardiovascular Exam: regular rate/rhythm, normal heart sounds, normal peripheral pulses Gastrointestinal/Abdomen Exam: soft, normal bowel sounds, tenderness (Left side of abdomen to palpation), guarding (Left side of abdomen to palpation) Pelvic Exam: not done Rectal Exam: not done Back Exam: normal inspection, normal range of motion, CVA tenderness (Left side to percussion), No vertebral tenderness Extremity Exam: normal inspection, normal range of motion, pelvis stable Neurologic Exam: alert, oriented x 3, cooperative, medical transcriber II-XII nml as tested, nml cerebellar function, nml station & gait, sensation nml Skin Exam: normal color, warm, dry Lymphatic Exam: No adenopathy SpO2 Interpretation: normal O2 Delivery: Room Air - Course Nursing assessment & vital signs reviewed: Yes Ordered Tests: Active Orders 24 hr Category Date Time Status IV Insertion STAT Care 03/11/24 14:42 Active ABDOMEN AND PELVIS W/0 CONTRAS [CT] Stat Exams 03/11/24 14:42 Completed AMYLASE Stat Lab 03/11/24 15:00 Completed CBC W DIFF Stat Lab 03/11/24 15:00 Completed CMP Stat Lab 03/11/24 15:00 Completed LIPASE Stat Lab 03/11/24 15:00 Completed UA W/RFX UR CULTURE Stat Lab 03/11/24 16:36 Completed Medication Summary Discontinued Medications Generic Name Dose Route Start Last Admin Trade Name Alexander PRN Reason Stop Dose Admin Hydromorphone HCl 1 mg 03/11/24 17:03 03/11/24 17:12 Hydromorphone 1 Mg/1ml Inj IV 03/11/24 17:04 1 mg STAT ONE Administration Hydromorphone HCl Confirm 03/11/24 17:08 Hydromorphone 1 Mg/1ml Inj Administered 03/11/24 17:09 Dose 1 mg .ROUTE .STK-MED ONE Prochlorperazine Edisylate 5 mg 03/11/24 17:04 03/11/24 17:10 Prochlorperazine Edisylate 10 Mg/2 Ml Vial IV 03/11/24 17:05 5 mg STAT ONE Administration Prochlorperazine Edisylate Confirm 03/11/24 17:08 Prochlorperazine Edisylate 10 Mg/2 Ml Vial Administered 03/11/24 17:09 Dose 10 mg .ROUTE .[facility]-MED ONE Lab/Rad Data: Laboratory Result Diagrams 03/11/24 15:00 03/11/24 15:00 Laboratory Results 03/11/24 03/11/24 03/11/24 Range/Units 16:36 15:00 15:00 WBC 5.0 (3.98-10.04) x10^3/uL RBC 3.94 (3.93-5.22) x10^6/uL Hgb 12.4 (11.2-15.7) g/dL Hct 36.9 (34.1-44.9) % MCV 93.7 (79.4-94.8) fL MCH 31.5 (25.6-32.2) pg MCHC 33.6 (32.2-35.5) g/dL RDW 11.9 (11.7-14.4) % Plt Count 195 (182-369) x10^3/uL MPV 8.6 L (9.4-12.3) fL Gran % 71.7 H (34.0-71.1) % Immature Gran % (Auto) 0.2 (0.001-0.429) % Nucleat RBC Rel Count 0.0 (0.00-0.2) % Eos # (Auto) 0.02 L (0.04-0.36) x10^3/uL Immature Gran # (Auto) 0.01 (0.001-0.031) x10^3u/L Absolute Lymphs (auto) 0.95 L (1.18-3.74) x10^3/uL Absolute Monos (auto) 0.39 (0.24-0.86) x10^3/uL Absolute Nucleated RBC 0.00 (0.00-0.012) x10^3u/L Lymphocytes % 19.2 L (19.3-51.7) % Monocytes % 7.9 (4.7-12.5) % Eosinophils % 0.4 L (0.7-5.8) % Basophils % 0.6 (0.1-1.2) % Absolute Granulocytes 3.56 (1.56-6.13) x10^3/uL Basophils # 0.03 (0.01-0.08) x10^3/uL Sodium 138 (135-145) mmol/L Potassium 4.2 (3.5-5.1) mmol/L Chloride 108 H (98-107) mmol/L Carbon Dioxide 25 (22-30) mmol/L Anion Gap 9.0 (5-15) MEQ/L BUN 19 H (7-17) mg/dL Creatinine 0.68 (0.52-1.04) mg/dL Estimated GFR 106.7 ML/MIN Glucose 92 (74-106) mg/dL Calcium 9.2 (8.4-10.2) mg/dL Total Bilirubin 0.60 (0.2-1.3) mg/dL AST 29 (14-36) U/L ALT 22 (0-35) U/L Alkaline Phosphatase 53 (38-126) U/L Serum Total Protein 7.0 (6.3-8.2) g/dL Albumin 4.5 (3.5-5.0) g/dL Amylase 69 (30-110) U/L Lipase 69 (23-300) U/L Urine Color Yellow (Yellow) Urine Appearance Clear (Clear) Urine pH 7.0 (4.6-8.0) Ur Specific [place] 1.010 (1.005-1.030) Urine Protein Negative (Negative) Urine Glucose (UA) Negative (Negative) mg/dL Urine Ketones Negative (Negative) Urine Blood Negative (Negative) Urine Nitrite Negative (Negative) Urine Bilirubin Negative (Negative) Urine Urobilinogen 0.2 (0.2) mg/dL Ur Leukocyte Esterase Negative (Negative) U Hyaline Cast (Auto) NONE SEEN (0-2) /LPF Urine Microscopic RBC 0-2 (0-5) /HPF Urine Microscopic WBC 0-2 (0-5) /HPF Ur Epithelial Cells None Seen (None Seen) /HPF Urine Bacteria None Seen (None Seen) /HPF Urine Culture Reflexed NO (NO) - Progress Progress: improved, pain not gone completely Progress Note: 03/11/24 15:57 My medical decision making and the assignment of moderate complexity to this patient's medical issue today is based on review of the patient's past medical history, review of the patient's medication list, reviewed patient drug allergy list, history present illness and physical findings on examination. The workup in this patient includes placement of an intravenous line, CBC, CMP, amylase, lipase, urinalysis, CT scan of the abdomen pelvis without contrast. We will also provide the patient with intravenous Dilaudid and intravenous Zofran. Differential diagnosis includes but is not limited to pancreatitis, ureterolit hiasis, pyelonephritis, intra-abdominal/pelvic acute abnormality, abdominal wall pain I interpreted the laboratory data results. The urinalysis is pending. Based on the current workup results, there are no acute, emergent medical issues. The CT scan of the abdomen pelvis was interpreted by the radiologist and I reviewed the impression. The impression states negative for renal calculus or obstructive uropathy. Normal appendix. No free air/fluid. No abdominal aortic aneurysm. No new/acute findings in this noncontrast exam 03/11/24 17:55 The urinalysis shows no acute infection or dehydration Counseled pt/family regarding: lab results, diagnosis, need for follow-up, rad results Medical Desision Making - Diagnostic Testing Diagnostic test were ordered, analyzed, and reviewed by me: Yes Radiological Interpretation: Reviewed by me, Teleradiologist Report - Risk of complications The pt has a mod risk of morbidity or mortality based on: Need for prescription drug management - Departure Departure Disposition: Home Clinical Impression: Left-sided abdominal pain of unknown etiology Condition: Stable Critical Care Time: No Referrals: VANE OAKES [Primary Care Provider] - Follow up/PCP as directed Additional Instructions: Drink plenty of fluids. Avoid fatty greasy spicy foods. Call your primary care provider on 03/14/2024, to make arrangements for follow-up appointment for further evaluation and management including referral to a non morse intercept technician for upper and lower endoscopy if indicated Prescriptions: Ondansetron ODT 4 MG [Zofran Odt 4 mg] 4 mg PO Q6H PRN PRN #10 tablet PRN Reason: Vomiting Hydrocodone/APAP 5/325 [[place] 5/325 mg] 1 each PO Q8H PRN PRN #6 tablet MDD 3 PRN Reason: Pain
[2024-03-11 14:40] VITALS: PULSE 63; TEMP 96.9
[2024-03-11 15:03] LABS: Absolute Neutrophil Ct (ANC) 3.56 x10^3/uL (1.56-6.13); BASOPHIL % 0.6 % (0.1-1.2); Basophil (Absolute #) 0.03 x10^3/uL (0.01-0.08); Eosinophil % 0.4 % (0.7-5.8); Eosinophil (Absolute #) 0.02 x10^3/uL (0.04-0.36); Hematocrit 36.9 % (34.1-44.9); Hemoglobin 12.4 g/dL (11.2-15.7); IMMATURE GRAN # 0.01 x10^3u/L (0.001-0.031); IMMATURE GRAN % 0.2 % (0.001-0.429); Lymphocyte (Absolute #) 0.95 x10^3/uL (1.18-3.74); Lymphocytes % 19.2 % (19.3-51.7); Mean Cell Volume 93.7 fL (79.4-94.8); Mean Corpuscular Hemoglobin 31.5 pg (25.6-32.2); Mean Corpuscular Hgb Concent. 33.6 g/dL (32.2-35.5); Mean Platelet Volume 8.6 fL (9.4-12.3); Monocyte (Absolute #) 0.39 x10^3/uL (0.24-0.86); Monocytes % 7.9 % (4.7-12.5); Neutrophil % 71.7 % (34.0-71.1); Platelet Count 195 x10^3/uL (182-369); Red Blood Count 3.94 x10^6/uL (3.93-5.22); Red Cell Distribution Width 11.9 % (11.7-14.4)
[2024-03-11 15:15] LABS: ALBUMIN 4.5 g/dL (3.5-5.0); BILIRUBIN,TOTAL 0.6 mg/dL (0.2-1.3); Calcium 9.2 mg/dL (8.4-10.2); Creatinine 1 0.68 mg/dL (0.52-1.04); EST GLOMERULAR FILTRATION RATE 106.7 ML/MIN; Potassium 4.2 mmol/L (3.5-5.1)
--- NOTE | 2024-03-11 15:25 | XRAY ---
Indication: Left flank pain. No prior history of renal stones. Multiple contiguous axial images obtained through the abdomen and pelvis without contrast using renal stone protocol. Comparison: July 13, 2023 Lung bases clear. Heart not enlarged. No renal calculus or evidence for obstructive uropathy in either system. Noncontrasted stomach and bowel loops appear nonobstructed with normal appendix. Again cholecystectomy and hysterectomy. No free fluid/air. Remaining liver, pancreas, spleen, adrenal glands, kidneys, ureters, and bladder are unremarkable for noncontrast exam. Again minimal aortoiliac calcifications without AAA. Osseous structures intact again with minimal degenerative changes throughout the spine and both hips. Impression: 1. Continue negative renal calculus or evidence for obstructive uropathy. 2. Chronic findings including arteriosclerotic disease and chronic bony findings. 3. No new/acute findings on this noncontrast exam.
[2024-03-11] MEDS ORDERED: Compazine 10 MG/2 ML ONE (17:08)
[2024-03-11] MEDS ORDERED: Hydromorphone 1 mg/ml Injection ONE ×2 (17:08→17:58)
[2024-03-11] MEDS: Compazine 10 MG/2 ML IV ONE (17:10)
[2024-03-11] MEDS: Hydromorphone 1 mg/ml Injection IV ONE ×2 (17:12→18:00)
[2024-03-11 17:48] LABS: Bacteria None Seen /HPF (None Seen); Bilirubin Negative (Negative); Blood Negative (Negative); Epithelial Cells None Seen /HPF (None Seen); Glucose, Urine Negative (Negative); Hyaline Casts NONE SEEN /LPF (0-2); Ketones Negative (Negative); Leukocyte Esterase Negative (Negative); Nitrite Negative (Negative); Protein,Urine Dip Negative (Negative); RBC 0-2 /HPF (0-5); Urobilinogen 0.2 mg/dL (0.2); WBC 0-2 /HPF (0-5)
[2024-03-11 17:50] LABS: Appearance Clear (Clear)
[2024-03-11 18:03] VITALS: BP 121/79; O2SAT 95
== END 2024-03-11 18:42 | disposition home or self-care (01) ==
LOC: ED 13:53
DX: R10.9 Unspecified abdominal pain (principal); R11.2 Nausea with vomiting, unspecified
CPT/HCPCS: 36415; 74176; 80053; 81001; 82150; 83690; 85025; 96374; 96375; 96376; 99284; J1171

== ENCOUNTER 2024-07-24 11:03 | Emergency (ER) | payer OTHER ==
[2024-07-24 11:26] VITALS: TEMP 97.2
--- NOTE | 2024-07-24 11:43 | ERPHSYRPT ---
- History of Present Illness Source: patient Exam Limitations: no limitations Patient Subjective Stated Complaint: pt here for pain to lower back today.no new injury, states pain is chronic, has tried tramadol at home Triage Nursing Assessment: pt alert, walked in, appears in pain, moaning and crying occ. resp easy, skin w/d/p. moves all ext well Physician History: Patient has chronic back pain. She hasDegenerative disc disease and scoliosis. She had a procedure on her spine becauseShe had a cyst on her spine I believe. This was according to her. She says that she has not been the same since the surgery. She has frequent back pain. This 1 got worse. There is no trauma. She said she just woke up with it. She does not have any bowel or bladder dysfunction or saddle paresthesias or acute cord symptoms. She basically just has this exacerbation of the pain which happens frequently to her. She does have analgesia at home but it is not helping. Timing/Duration: today Quality: sharp, aching, stabbing Back Pain Location: lumbar spine Allergies/Adverse Reactions: No Known Drug Allergies Allergy (Verified 07/24/24 11:10) Home Medications: Gabapentin [Gralise] 400 mg PO TID 12/31/18 [History] Omeprazole Magnesium [Prilosec Otc] 40 mg PO BID 12/31/18 [History] Potassium Chloride 10 meq PO BID 12/31/18 [History] Cyclobenzaprine HCl 10 mg [Cyclobenzaprine 10 MG] 10 mg PO DAILY 07/13/23 [History] ALPRAZolam 1 MG [Xanax 1 mg] 1 mg PO HS 03/11/24 [History] Famotidine 40 mg PO DAILY 03/11/24 [History] Lipase/Protease/Amylase [Adali Fabian 12,000 Unit Capsule] 1 cap PO TID 03/11/24 [History] Phentermine HCl 37.5 mg PO DAILY 03/11/24 [History] Hx Tetanus, Diphtheria Vaccination/Date Given: No Hx Influenza Vaccination/Date Given: Yes Hx Pneumococcal Vaccination/Date Given: No Immunizations Up to Date: Yes Travel Risk - International Travel Have you traveled outside of the country in past 3 weeks: No - Emerging Infectious Disease Are you exhibiting symptoms associated with any current EIDs: No Symptoms: Abdominal Pain - Review of Systems Constitutional: No Symptoms Eyes: No Symptoms Respiratory: No Symptoms Cardiac: No Symptoms Abdominal/Gastrointestinal: No Symptoms Musculoskeletal: Back Pain Skin: No Symptoms Neurological: No Symptoms Psychological: No Symptoms All Other Systems: Reviewed and Negative - Past Medical History Pertinent Past Medical History: Yes Neurological History: No Pertinent History ENT History: No Pertinent History Cardiac History: High Cholesterol Respiratory History: Bronchitis Endocrine Medical History: Hypoglycemia Musculoskeletal History: Other GI Medical History: GERD History: Other Psycho-Social History: Anxiety, Depression Female Reproductive Disorders: Endometriosis Other Medical History: CHARCOT ANDREIA TOOTH DISEASE, ROTATOR CUFF REPAIR RIGHT, RIGHT HAND RECONSTRUCTION WITH HARDWARE, BILATERAL CARPAL TUNNEL, FOOT RECONST RUCTION BILATERAL CHILD, SURGERY BILATERAL ANKLES FOR TENDON ISSUES (PATIENT REPORTS 2-3 ON EACH LEG). - Past Surgical History Past Surgical History: Yes Neuro Surgical History: No Pertinent History Cardiac: No Pertinent History Respiratory: No Pertinent History Gastrointestinal: Cholecystectomy, Exploratory Laparoscopy Genitourinary: No Pertinent History Musculoskeletal: Joint Replacement Female Surgical History: Hysterectomy Other Surgical History: pt has had multiple surgeries.... 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 - Female History Hx Last Menstrual Period: hyster Hx Now: No - Social History Smoking Status: Former smoker How long have you smoked: 30 years Exposure to second hand smoke: Yes Drug Use: marijuana - Social Determinants of Health Will the patient participate in the screening: Yes Do you worry about a steady place to live?: No Do you have any problems with any of the following?: No known problems In the past 12 months,have you had to go without utilities?: No Transportation Issues: No Has anyone in your support network made you feel unsafe?: No Have you or anyone in your house had to go w/o enough food: No - Nursing Vital Signs Nursing Vital Signs: Initial Vital Signs Temperature 97.2 F 07/24/24 11:25 Pulse Rate 66 07/24/24 11:25 Respiratory Rate 18 07/24/24 11:25 Blood Pressure 176/102 07/24/24 11:25 O2 Sat by Pulse Oximetry 97 07/24/24 11:25 Pain Scale Pain Intensity [Back] 10 Pain Intensity 5 - Physical Exam SpO2: 97 - Course Nursing assessment & vital signs reviewed: Yes Ordered Tests: Medication Summary Discontinued Medications Generic Name Dose Route Start Last Admin Trade Name Alexander PRN Reason Stop Dose Admin Hydromorphone HCl 1 mg 07/24/24 11:32 07/24/24 11:49 Hydromorphone 1 Mg/1ml Inj IV 07/24/24 11:33 1 mg STAT ONE Administration Hydromorphone HCl Confirm 07/24/24 11:46 Hydromorphone 1 Mg/1ml Inj Administered 07/24/24 11:47 Dose 1 mg .ROUTE .STK-MED ONE Ondansetron HCl 4 mg 07/24/24 11:32 07/24/24 11:48 Ondansetron Hcl 4 Mg/2 Ml Vial IV 07/24/24 11:33 4 mg STAT ONE Administration Ondansetron HCl Confirm 07/24/24 11:46 Ondansetron Hcl 4 Mg/2 Ml Vial Administered 07/24/24 11:47 Dose 4 mg .ROUTE .STK-MED ONE - Progress Progress: improved Progress Note: Patient was stable throughout stay. She got some Dilaudid and Zofran IM. Her pain resolved. She is feeling much better. I am going to discharge her to home. She has medication at home for pain. At this time I do not think is anything acute. I think is just an exacerbation of her chronic back pain. 07/24/24 12:55 Medical Desision Making - Social Determinants of Health Limited access to: transportation - Risk of complications Minimal Risk: Minimal risk of morbidity - Departure Departure Disposition: Home Clinical Impression: Acute exacerbation of chronic low back pain Condition: Stable Critical Care Time: No Referrals: VANE MOTA [Primary Care Provider, [facility]] - Follow up/PCP as directed Instructions: Chronic Pain (DC)
[2024-07-24] MEDS ORDERED: Zofran 4 MG/2 ML VIAL ONE (11:46)
[2024-07-24] MEDS ORDERED: Hydromorphone 1 mg/ml Injection ONE (11:46)
[2024-07-24] MEDS: Zofran 4 MG/2 ML VIAL IV ONE (11:48)
[2024-07-24] MEDS: Hydromorphone 1 mg/ml Injection IV ONE (11:49)
[2024-07-24 13:01] VITALS: BP 114/75; PULSE 59; RESP 15; O2SAT 95
== END 2024-07-24 13:04 | disposition home or self-care (01) ==
LOC: ED 11:03
DX: G89.29 Other chronic pain (principal); M54.50 Low back pain, unspecified; E78.5 Hyperlipidemia, unspecified; Z79.899 Other long term (current) drug therapy
CPT/HCPCS: 96372; 99283; 99284; J1171; J2405

== ENCOUNTER 2024-12-28 08:31 | Emergency (ER) | payer OTHER ==
[2024-12-28 08:46] VITALS: RESP 18; TEMP 97.2
--- NOTE | 2024-12-28 08:59 | ERPHSYRPT ---
- History of Present Illness Time Seen by Provider: 12/28/24 08:35 Source: patient Patient Subjective Stated Complaint: PT HERE FOR PAIN AND CRAMPING TO LOWER BACK AND LEGS, STATES THE PAIN HAS BEEN WORSE SINCE STARTING PT LAST WEEK, SHE HAS HAD NO MEDS TODAY FOR PAIN, Triage Nursing Assessment: PT ALERT,ANXIOUS, ARRIVED PER WC, RESTLESS IN BED, RESP EASY, SKIN W/D/P. 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 Patient is currently on Lyrica for this. She states that [id number] Tylenol is not working. No chest pain or shortness of breath. No fever or chills. No nausea or vomiting. Patient has been apparently to specialty clinics in the past without ability to assist her care. Patient asking for pain control. Allergies/Adverse Reactions: No Known Drug Allergies Allergy (Verified 12/28/24 08:35) Home Medications: Omeprazole Magnesium [Prilosec Otc] 40 mg PO BID 12/31/18 [History] Potassium Chloride 10 meq PO BID 12/31/18 [History] Cyclobenzaprine HCl 10 mg [Cyclobenzaprine 10 MG] 10 mg PO DAILY 07/13/23 [History] Famotidine 40 mg PO DAILY 03/11/24 [History] Pregabalin 150 mg PO BID 12/28/24 [History] Hx Tetanus, Diphtheria Vaccination/Date Given: No Hx Influenza Vaccination/Date Given: Yes Hx Pneumococcal Vaccination/Date Given: No Immunizations Up to Date: Yes Travel Risk - International Travel Have you traveled outside of the country in past 3 weeks: No - Emerging Infectious Disease Are you exhibiting symptoms associated with any current EIDs: No Symptoms: Abdominal Pain - Review of Systems All Other Systems: Reviewed and Negative (As per HPI otherwise negative) - Past Medical History Pertinent Past Medical History: Yes Neurological History: Migraines ENT History: No Pertinent History Cardiac History: No Pertinent History Respiratory History: No Pertinent History Endocrine Medical History: Other Musculoskeletal History: Arthritis GI Medical History: GERD History: Other Psycho-Social History: Anxiety, Depression Female Reproductive Disorders: Endometriosis Other Medical History: PMH: MIGRAINES, GOITER REMOVED, CHARCOT NILDA TOOTH DISORDER. PSH: GOITER REMOVED, BILATERAL HAND DISEASE, SPINE SX (2023), NECK FATTY TUMOR REMOVAL (9 YEARS AGO) - Past Surgical History Past Surgical History: Yes Neuro Surgical History: No Pertinent History Cardiac: No Pertinent History Respiratory: No Pertinent History Gastrointestinal: Cholecystectomy, Exploratory Laparoscopy Genitourinary: No Pertinent History Musculoskeletal: Joint Replacement Female Surgical History: Hysterectomy Other Surgical History: pt has had multiple surgeries.... 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 - Female History Hx Last Menstrual Period: POST Hx Now: No - Social History Smoking Status: Former smoker How long have you smoked: 30 years Exposure to second hand smoke: Yes Drug Use: marijuana - Social Determinants of Health Will the patient participate in the screening: Yes Do you worry about a steady place to live?: No Do you have any problems with any of the following?: No known problems In the past 12 months,have you had to go without utilities?: No Transportation Issues: No Has anyone in your support network made you feel unsafe?: No Have you or anyone in your house had to go w/o enough food: No - Nursing Vital Signs Nursing Vital Signs: Initial Vital Signs Temperature 97.2 F 12/28/24 08:46 Pulse Rate 66 12/28/24 08:46 Respiratory Rate 18 12/28/24 08:46 Blood Pressure 149/93 12/28/24 08:46 O2 Sat by Pulse Oximetry 99 12/28/24 08:46 Pain Scale Pain Intensity 10 - Physical Exam SpO2: 99 Comments: 12/28/24 09:12 General: Well-nourished well-developed. Tearful HEENT: Normocephalic atraumatic no obvious facial or neck deformity or injury. Neck: Supple. No deformity or mass noted. CV: RRR NL Perfusion. No edema Resp: No Respiratory distress or adventitious breath sounds Abd: ND SNT MSK: No deformity or TTP Neuro: [place] and [place] x4. No gross focal neurologic changes Psych: No SI, HI or grave disability Ordered Tests: Medication Summary Discontinued Medications Generic Name Dose Route Start Last Admin Trade Name Freq PRN Reason Stop Dose Admin Hydrocodone Bitart/Acetaminophen 2 tab 12/28/24 09:00 Hydrocodone/Apap 5/325 1 Tab Tablet PO 12/28/24 09:01 STAT ONE Hydrocodone Bitart/Acetaminophen Confirm 12/28/24 09:07 Hydrocodone/Apap 5/325 1 Tab Tablet Administered 12/28/24 09:08 Dose 2 tab .ROUTE .STK-MED ONE Gabapentin 300 mg 12/28/24 09:02 Gabapentin 300 Mg Capsule PO 12/28/24 09:03 STAT ONE - Progress Progress Note: 12/28/24 09:12 Patient with chronic pain management issues. Will be placed on gabapentin 10- day course to be refilled or continued by her doctor as needed. She will be given first dose of gabapentin and hydrocodone in the emergency department. The patient's condition was discussed with themselves and/or family members in great detail. Precautions are given and need to return or call 911 immediately for any changes or worsening are discussed. Instructions on patient's condition and noting that conditions can change or worsen and that diagnosis are presumptive and can evolve are discussed. All questions were answered. All concerns addressed at this time - Departure Departure Disposition: Home Clinical Impression: Charcot-Nilda disease Condition: Stable Critical Care Time: No Referrals: VANE MOTA [Primary Care Provider, [facility]] - Follow up/PCP as directed Instructions: Epifwdh-Lcypp-Bijec disease Additional Instructions: Your doctor today to arrange close follow-up. Consider having your doctor refer you to specially care in larger subspecialty capable facilities such as in [place] or [place] You have been evaluated for an emergency medical condition. At this time, given the current history and events presented, the examination conducted and any possible testing you may have had, you have been given a presumptive diagnosis based on the current information is obtained. Your discharge diagnosis is presumptive and not necessarily definitive. Medical conditions present in various stages very often without all the symptoms or findings described in medical literature. Other symptoms, concerns or conditions may arise and your diagnoses may evolve or change and/or your condition could potentially worsen after the time of disposition or discharge. You have been given a presumptive diagnosis and your condition appears to be stable, but your medical issues can change or worsen. If there is worsening of your condition including difficulty breathing, swallowing, speaking, chest pain or pressure, intractable vomiting, worsening or changing mental status, numbness, tingling or weakness of your body or arms or legs, thoughts or plans of harming yourself or others, or any other concerns, call 911 and/or return immediately to the closest emergency department. It is important you follow-up with your doctor on the next business day. Call your doctor, or the referral provided if you do not have a doctor, when they open to schedule a follow-up appointment in the next 1 or latest 2 days. Please refer to the attached sheet. If you do not have primary care doctor, you can call the [facility] referral line at [phone]. Return immediately if your symptoms worsen or if you are unable to obtain further care. My team and I thank you for choosing the [facility] Emergency Department emergency healthcare needs. We wish you a speedy recovery. Very respectfully, Dr. Latricia Smith M.D. [place] [employer] Board-certified Emergency Physician Prescriptions: Gabapentin 300 mg PO TID #30 cap
[2024-12-28] MEDS ORDERED: NORCO 5/325 MG ONE (09:07)
[2024-12-28] MEDS: NEURONTIN PO ONE (09:15)
[2024-12-28] MEDS: NORCO 5/325 MG PO ONE (09:15)
[2024-12-28 09:47] VITALS: BP 112/68; PULSE 70; O2SAT 97
== END 2024-12-28 09:47 | disposition home or self-care (01) ==
LOC: ED 08:31
DX: G60.0 Hereditary motor and sensory neuropathy (principal); Z79.899 Other long term (current) drug therapy

== ENCOUNTER 2025-02-15 13:53 | Day surgery (SDC) | payer OTHER ==
[2012-03-16 17:16] VITALS: BP 114/68
[2025-02-15] MEDS ORDERED: LIDOCAINE HCL 1% 50 MG/5 ML VL IJ ONE (13:54)
[2025-02-15] MEDS ORDERED: Sodium Chloride 0.9(Preservative Free) 10 ML IJ ONE (13:54)
[2025-02-15] MEDS ORDERED: propofoL IV ONE ×2 (15:29→15:37)
[2025-02-15] MEDS ORDERED: Lactated Ringers 1,000 ML IV ONE (15:47)
--- NOTE | 2025-02-15 16:38 | XRAY ---
Indication: Right L5-S2 transforaminal JOSÉ. Intraoperative fluoroscopy provided for 35 seconds. 4 digital spot image submitted for interpretation demonstrates posterior needle tips projecting over expected right L5 and S1 nerve roots. Small amount of contrast injected for needle tip placement. Correlate with intraoperative findings/report.
--- NOTE | 2025-02-15 16:38 | XRAY ---
Indication: Right piriformis injection. Intraoperative fluoroscopy provided for 16 seconds. Single digital spot image submitted for interpretation demonstrates posterior needle tip projecting over right piriformis. Small amount of contrast injected for needle tip placement. Correlate with intraoperative findings/report.
--- NOTE | 2025-02-15 17:00 | XRAY ---
16 seconds of fluoroscopy was used in surgery for a right piriformis injection.
--- NOTE | 2025-02-15 17:01 | XRAY ---
35 seconds of fluoroscopy was used in surgery for a right L5-S2 transforaminal JOSÉ.
== END 2025-02-15 16:13 | disposition home or self-care (01) ==
LOC: SDC-PAIN 13:53
PROVIDERS: ATTEND Psychiatry & Neurology Pain Medicine
DX: M54.16 Radiculopathy, lumbar region (principal); M79.18 Myalgia, other site